=== PATIENT | male | born 1960 | race Caucasian/White ===

== ENCOUNTER 2018-11-06 00:01 | Inpatient (IN) ==
--- NOTE | 2018-11-06 01:01 | Emergency Department Note ---
Disposition Clinical Impression: Hyperbilirubinemia, Alkaline phosphatase elevation, Transaminitis Abdominal pain Qualifiers: Abdominal location: right upper quadrant Qualified Code(s): R10.11 - Right upper quadrant pain Hepatitis A Qualifiers: Hepatic coma status: without hepatic coma Qualified Code(s): B15.9 - Hepatitis A without hepatic coma Disposition: Admitted As Inpatient Condition: Fair Time of Disposition: 04:25 General Adult HPI - General Chief complaint: ED Recheck/Abnormal Lab/Rx Stated complaint: abnormal labs Time Seen by Provider: 11/06/18 00:16 Source: patient, family Limitations: no limitations Nursing Notes Reviewed: Yes Vital Signs Reviewed: Yes - History of Present Illness HPI Narrative: 58-year-old male diabetic arrives by private vehicle with complaint of elevated liver function tests from his primary care provider earlier today. Patient has known history of mental retardation is accompanied by his guardian who assisted with history. Patient guardian mentions that for the past week patient has not been feeling very well. They mention decreased appetite, and just a general feeling of "feeling bad". Patient did have one episode of vomiting earlier today. Patient was seen in his primary care providers today for routine diabetes visit. They describe having blood work, as well as an x-ray. After returning home, they had received a call from patient's PCP advising him to come the emergency department since his liver enzymes are elevated. Patient has been complaining of abdominal pain. Guardian states that he feels the patient's been complaining of right upper quadrant pain. Today he mentions that his urine turned the color of foreign soda. Patient denies any nausea, fever, stool color changes, diarrhea. Pain Scale: 8 - Related Data Home Medications Medication Instructions Recorded Confirmed Atorvastatin [Lipitor] 80 mg PO HS 11/24/14 11/06/18 Fluticasone Propionate Nasal 2 spray NS DAILY PRN 11/24/14 11/06/18 [Flonase] Loratadine [Claritin] 10 mg PO DAILY PRN 11/24/14 11/06/18 Metformin [Glucophage] 750 mg PO DAILY 11/24/14 11/06/18 Ranitidine HCl [Zantac] 150 mg PO BID 11/24/14 11/06/18 Omeprazole [PriLOSEC] 40 mg PO BID 04/06/15 11/06/18 Ciprofloxacin HCl [Cipro] 500 mg PO BID 11/06/18 11/06/18 Previous Rx's Medication Instructions Recorded Acetaminophen [Tylenol] 650 mg PO Q6HR PRN #30 tablet 03/02/18 Ibuprofen [Motrin] 600 mg PO Q8HR PRN #20 tab 03/02/18 Allergies Allergy/AdvReac Type Severity Reaction Status Date / Time egg Allergy Mild See Verified 11/06/18 00:25 Comments sulfamethoxazole Allergy See Verified 11/06/18 00:25 [From Bactrim] Comments trimethoprim [From Bactrim] Allergy See Verified 11/06/18 00:25 Comments All systems ED: reviewed and negative except as stated. Review of Systems: As Per HPI Constitutional: Denies: fever, chills Eyes: Denies: eye pain ENT ED: Denies: ear pain Cardiovascular: Denies: chest pain, palpitations Respiratory: Denies: dyspnea Gastrointestinal: Reports: as per HPI. Denies: diarrhea, constipation Genitourinary: Denies: dysuria Musculoskeletal: Denies: back pain Integumentary: Denies: rash Neurological: Denies: headache Hematological/Lymphatic: Denies: easy bleeding, lymphadenopathy Allergic/Immunologic: Denies: facial swelling Past Medical History - Past Medical History Medical history: Reports: diabetes, GERD, hyperlipidemia, hypertension, other Surgical history: Reports: herniorrhaphy, other Psychiatric history: Reports: no psych history - Social History Smoking Status: Never smoker Smokeless Tobacco Status: No Alcohol use: Reports: none Drug use: Reports: none Physical Exam - General Limitations: no limitations General appearance: alert, in no apparent distress - Head Head exam: atraumatic, normocephalic - Eye Eye exam: Present: EOMI, scleral icterus. Absent: conjunctival injection - ENT ENT exam: normal oropharynx, mucous membranes moist - Neck Neck exam: Present: full ROM - Chest Chest inspection: Present: symmetric chest wall rise - Respiratory Respiratory exam: Present: normal lung sounds bilaterally. Absent: respiratory distress - Cardiovascular Cardiovascular exam: Present: regular rate, normal rhythm - Abdominal Exam Abdominal exam: Present: soft, tenderness Abdominal tenderness: Present: RUQ - Extremities Exam Extremities exam: Present: normal inspection, full ROM, normal capillary refill - Back Exam Back exam: Present: full ROM. Absent: CVA tenderness (R), CVA tenderness (L) - Neurological Exam Neurological exam: Present: alert - Psychiatric Psychiatric exam: Present: normal affect, normal mood - Skin Skin exam: Present: warm, dry, intact, normal color. Absent: rash, cyanosis, diaphoresis Course Course Narrative: 58-year-old male diabetic arrives by private vehicle with complaint of elevated liver function tests from his primary care provider earlier today. Patient has known history of mental retardation is accompanied by his guardian who assisted with history. Patient guardian mentions that for the past week patient has not been feeling very well. They mention decreased appetite, and just a general feeling of "feeling bad". Patient did have one episode of vomiting earlier today. Patient was seen in his primary care providers today for routine diabete s visit. They describe having blood work, as well as an x-ray. After returning home, they had received a call from patient's PCP advising him to come the emergency department since his liver enzymes are elevated. Patient has been complaining of abdominal pain. Guardian states that he feels the patient's been complaining of right upper quadrant pain. Today he mentions that his urine turned the color of foreign soda. Patient denies any nausea, fever, stool color changes, diarrhea. Patient seen and examined. He is alert and answers questions appropriately. Does not appear to be toxic. He has scleral icterus normal oropharynx. Lung sounds are clear. Heart regular rate and rhythm. Diffuse abdominal tenderness. No CVA tenderness. he declines antiemetics and analgesics at this point. White blood count of 4.2 Total bili 4.8. AST 2233 ALT 3234 Alkaline phosphatase 206 Amylase and lipase within normal limits. 2 views of abdomen x-ray taken at family doctor unremarkable. Patient was placed on ciprofloxacin took one dose, given today PCPs office for possible urinary tract infection Past surgical history includes hiatal hernia repair Medications include Zantac, Prilosec, metformin, atorvastatin, ciprofloxacin, Flonase, - Reevaluation(s) Reevaluation #1: Patient states he feels comfortable enough, denies any medications now. He remains stable. Hepatitis profile pending. CAT scan is suggestive of acute cholecystitis. We will page surgery. Time: 03:25 Reevaluation #2: I had discussed patient with on-call surgeon Dr. Baron, who did advise for a medical admission and agreed to consult. Patient was discussed with hospitalist Dr. Vizcaino. At this time GI consult is not available since its after hours. Dr. Vizcaino is suggesting transfer for consult with auto mechanic apprentice/GI. Hepatitis profile pending. @04:25 after discussion with GI, I discussed patient with Dr. Vizcaino again who agreed to accept patient. I also discussed hepatitis profile with lab, who states that there quality consultant is being updated and they expect this to result in 30 minutes. Time: 04:00 - Consultations Consultation #1: I discussed patient with Dr. Baron, who advised admission to the hospitalist. He mentions patient's AST ALT levels are high, not consistent with choledocholithiasis, and he feels this is a acute primary hepatic problem. He did agree to consult. Time: 03:34 Consultation #2: On GI was paged, I discussed patient with Dr. Jack. He agreed with hepatitis panel, mentioning it seems consistent with hepatitis. He also felt patient could be admitted here and agreed to consult. Time: 04:19 Vital Signs Temperature 97.5 F L 11/06/18 00:03 Pulse Rate 86 11/06/18 00:03 Respiratory Rate 16 11/06/18 00:03 Blood Pressure 124/67 11/06/18 00:03 O2 Sat by Pulse Oximetry 98 11/06/18 00:03 Temperature 97.4 F L 11/06/18 05:15 Pulse Rate 84 11/06/18 05:15 Respiratory Rate 17 11/06/18 05:15 Blood Pressure 104/62 11/06/18 05:15 O2 Sat by Pulse Oximetry 94 11/06/18 05:15 Oxygen Delivery Oxygen Delivery Room Air Medical Decision Making - [facility] Narrative Medical decision making narrative: Patient presented with abdominal pain, decreased appetite, malaise for partially one week. He was seen at his PCPs office and had outpatient labwork shown transaminitis as well as elevated bilirubin, and alkaline phosphatase.. He is advised to come to the emergency department for further evaluation and treatment. He was accompanied by his legal guardian this patient has a history of mental retardation. He does appear to be quite alert and answers questions appropriately and is very pleasant on examination. In addition to the blood work ordered by his PCP earlier in the day, and ordered an INR, CK, and urinalysis. CAT scan with contrast had been ordered abdomen and pelvis showed concerning signs for acute cholecystitis. However on discussion with surgery, Dr. Baron felt that this was a primary hepatic issue and he did not feel this was consistent with a cholecystitis, or choledocholithiasis. Patient did need admission, and discussed with hospitalist who were initially concerned due to the high degree of the liver enzymes. Discussion with the hospice doctor., He was concerned about these numbers and had initially wanted to transfer. However I was able to discuss patient with gastroenteritis Dr. Jack who agreed to see patient in the morning and felt that the patient could stay and would not need to be transferred. I also discussed patient with attending Dr. Damon also face time patient and agreed with admission here. Patient has no previous history of liver disease, and denies any alcohol or excessive acetaminophen. He denies any dietary supplements, or heating of any exotic or wild foods. During his workup here, the hepatitis panel was ordered, but had not resulted. Patient was ultimately admitted to the hospitalist service. After which the hepatitis profile had resulted approximate 4 hours after was initially ordered. It was reactive for hepatitis A. During his stay in the emergency department, patient declined need for any analgesics. His vital stable. Abdomen/Pelvis CT 11/06/18 02:14 IMPRESSION: 1. Findings are suggestive of acute cholecystitis. Suggest clinical correlation, and consider further characterization with a follow-up gallbladder ultrasound. 2. Bilateral renal peripelvic cysts. 3. Stable sliding-type hiatal hernia. 4. Stable small fat containing bilateral inguinal hernias. D/ / Chetan Herrera MD / Chetan Herrera MD Interpreting Provider: Chetan Herrera MD Laboratory Tests 11/06/18 11/06/18 11/06/18 01:06 01:23 01:23 PT 14.5 H INR 1.3 APTT 40.8 H Creatine Kinase 54 Urine Color [place] A Urine Clarity Clear Urine pH 6.0 Ur Specific [place] 1.024 Urine Protein Trace Urine Glucose (UA) Normal Urine Ketones 15 H Urine Blood Negative Urine Nitrite Negative Urine Bilirubin Moderate H Urine Urobilinogen 4.0 H Ur Leukocyte Esterase Negative Ur Culture Indicated? NO Acetaminophen 11/06/18 01:23 PT INR APTT Creatine Kinase Urine Color Urine Clarity Urine pH Ur Specific [place] Urine Protein Urine Glucose (UA) Urine Ketones Urine Blood Urine Nitrite Urine Bilirubin Urine Urobilinogen Ur Leukocyte Esterase Ur Culture Indicated? Acetaminophen < 10 L - Lab Data Lab results reviewed: Yes I reviewed the patient's lab results. Result diagrams: 11/06/18 04:22 11/06/18 04:22 Lab Results 11/06/18 11/06/18 11/06/18 Range/Units 01:06 01:23 01:23 WBC (4.3-11.1) K/mcL RBC (4.19-5.50) M/mcL Hgb (12.9-16.9) g/dL Hct (37.5-50.1) % MCV (83.0-100.0) fL MCH (28.0-33.3) pg MCHC (31.6-35.5) g/dL RDW (11.5-14.5) % Plt Count (140-400) K/mcL MPV (9.4-12.4) fL Immature Gran % (0-4) % Seg Neutrophils % % Lymphocytes % % Monocytes % % Eosinophils % % Basophils % % Neutrophils # (1.6-8.9) K/mcL Lymphocytes # (0.6-4.6) K/mcL Monocytes # (0.0-1.3) K/mcL Eosinophils # (0.0-0.6) K/mcL Basophils # (0.0-0.2) K/mcL Platelet Estimate (Normal) PT 14.5 H (9.4-12.1) Seconds INR 1.3 APTT 40.8 H (26.0-36.0) Seconds Sodium (136-145) mEq/L Potassium (3.5-5.1) mEq/L Chloride (98-107) mEq/L Carbon Dioxide (23-29) mEq/L BUN (8-23) mg/dL Creatinine (0.70-1.30) mg/dL Est GFR ( Amer) (> 60) Est GFR (Non-Af Amer) (> 60) BUN/Creatinine Ratio (6-26) Glucose (70-105) mg/dL Calculated Osmolality (280-300) Calcium (8.6-10.3) mg/dL Total Bilirubin (0.3-1.0) mg/dL Direct Bilirubin (0.0-0.2) mg/dL Indirect Bilirubin (0.0-1.2) mg/dL AST (13-39) Units/L ALT (7-52) Units/L Alkaline Phosphatase (34-104) Units/L Creatine Kinase 54 (30-223) Units/L Serum Total Protein (6.4-8.9) g/dL Albumin (3.5-5.7) g/dL Globulin (2.4-3.5) g/dL Albumin/Globulin Ratio (1.1-2.2) Urine Color [place] A (Yellow) Urine Clarity Clear (Clear) Urine pH 6.0 (5.0-8.0) pH Units Ur Specific [place] 1.024 (1.010-1.025) Urine Protein Trace (Neg-Trace) mg/dL Urine Glucose (UA) Normal (Normal) mg/dL Urine Ketones 15 H (Negative) mg/dL Urine Blood Negative (Negative) Urine Nitrite Negative (Negative) Urine Bilirubin Moderate H (Negative) Urine Urobilinogen 4.0 H (Normal) mg/dL Ur Leukocyte Esterase Negative (Negative) Ur Culture Indicated? NO (NO) Acetaminophen (10-20) mcg/mL Hepatitis A IgM Ab (Nonreactive) Hep Bs Antigen (Nonreactive) Hep B Core IgM Ab (Nonreactive) Hepatitis C Ab Screen (Nonreactive) 11/06/18 11/06/18 11/06/18 Range/Units 01:23 01:23 04:22 WBC 3.6 L (4.3-11.1) K/mcL RBC 4.86 (4.19-5.50) M/mcL Hgb 13.9 (12.9-16.9) g/dL Hct 41.5 (37.5-50.1) % MCV 85.4 (83.0-100.0) fL MCH 28.6 (28.0-33.3) pg MCHC 33.5 (31.6-35.5) g/dL RDW 14.0 (11.5-14.5) % Plt Count 218 (140-400) K/mcL MPV 9.6 (9.4-12.4) fL Immature Gran % 0.6 (0-4) % Seg Neutrophils % 52.7 % Lymphocytes % 27.6 % Monocytes % 17.7 % Eosinophils % 0.8 % Basophils % 0.6 % Neutrophils # 1.9 (1.6-8.9) K/mcL Lymphocytes # 1.0 (0.6-4.6) K/mcL Monocytes # 0.6 (0.0-1.3) K/mcL Eosinophils # 0.0 (0.0-0.6) K/mcL Basophils # 0.0 (0.0-0.2) K/mcL Platelet Estimate Normal (Normal) PT (9.4-12.1) Seconds INR APTT (26.0-36.0) Seconds Sodium (136-145) mEq/L Potassium (3.5-5.1) mEq/L Chloride (98-107) mEq/L Carbon Dioxide (23-29) mEq/L BUN (8-23) mg/dL Creatinine (0.70-1.30) mg/dL Est GFR ( Amer) (> 60) Est GFR (Non-Af Amer) (> 60) BUN/Creatinine Ratio (6-26) Glucose (70-105) mg/dL Calculated Osmolality (280-300) Calcium (8.6-10.3) mg/dL Total Bilirubin (0.3-1.0) mg/dL Direct Bilirubin (0.0-0.2) mg/dL Indirect Bilirubin (0.0-1.2) mg/dL AST (13-39) Units/L ALT (7-52) Units/L Alkaline Phosphatase (34-104) Units/L Creatine Kinase (30-223) Units/L Serum Total Protein (6.4-8.9) g/dL Albumin (3.5-5.7) g/dL Globulin (2.4-3.5) g/dL Albumin/Globulin Ratio (1.1-2.2) Urine Color (Yellow) Urine Clarity (Clear) Urine pH (5.0-8.0) pH Units Ur Specific [place] (1.010-1.025) Urine Protein (Neg-Trace) mg/dL Urine Glucose (UA) (Normal) mg/dL Urine Ketones (Negative) mg/dL Urine Blood (Negative) Urine Nitrite (Negative) Urine Bilirubin (Negative) Urine Urobilinogen (Normal) mg/dL Ur Leukocyte Esterase (Negative) Ur Culture Indicated? (NO) Acetaminophen < 10 L (10-20) mcg/mL Hepatitis A IgM Ab Reactive H (Nonreactive) Hep Bs Antigen Nonreactive (Nonreactive) Hep B Core IgM Ab Nonreactive (Nonreactive) Hepatitis C Ab Screen Nonreactive (Nonreactive) 11/06/18 11/06/18 Range/Units 04:22 04:22 WBC (4.3-11.1) K/mcL RBC (4.19-5.50) M/mcL Hgb (12.9-16.9) g/dL Hct (37.5-50.1) % MCV (83.0-100.0) fL MCH (28.0-33.3) pg MCHC (31.6-35.5) g/dL RDW (11.5-14.5) % Plt Count (140-400) K/mcL MPV (9.4-12.4) fL Immature Gran % (0-4) % Seg Neutrophils % % Lymphocytes % % Monocytes % % Eosinophils % % Basophils % % Neutrophils # (1.6-8.9) K/mcL Lymphocytes # (0.6-4.6) K/mcL Monocytes # (0.0-1.3) K/mcL Eosinophils # (0.0-0.6) K/mcL Basophils # (0.0-0.2) K/mcL Platelet Estimate (Normal) PT (9.4-12.1) Seconds INR APTT (26.0-36.0) Seconds Sodium 136 (136-145) mEq/L Potassium 3.8 (3.5-5.1) mEq/L Chloride 103 (98-107) mEq/L Carbon Dioxide 26 (23-29) mEq/L BUN 12 (8-23) mg/dL Creatinine 0.70 (0.70-1.30) mg/dL Est GFR ( Amer) > 60 (> 60) Est GFR (Non-Af Amer) > 60 (> 60) BUN/Creatinine Ratio 17 (6-26) Glucose 116 H (70-105) mg/dL Calculated Osmolality 283 (280-300) Calcium 8.2 L (8.6-10.3) mg/dL Total Bilirubin 5.0 H (0.3-1.0) mg/dL Direct Bilirubin 3.5 H (0.0-0.2) mg/dL Indirect Bilirubin 1.5 H (0.0-1.2) mg/dL AST 2157 H (13-39) Units/L ALT 2981 H (7-52) Units/L Alkaline Phosphatase 190 H (34-104) Units/L Creatine Kinase (30-223) Units/L Serum Total Protein 6.4 (6.4-8.9) g/dL Albumin 3.4 L (3.5-5.7) g/dL Globulin 3.0 (2.4-3.5) g/dL Albumin/Globulin Ratio 1.1 (1.1-2.2) Urine Color (Yellow) Urine Clarity (Clear) Urine pH (5.0-8.0) pH Units Ur Specific [place] (1.010-1.025) Urine Protein (Neg-Trace) mg/dL Urine Glucose (UA) (Normal) mg/dL Urine Ketones (Negative) mg/dL Urine Blood (Negative) Urine Nitrite (Negative) Urine Bilirubin (Negative) Urine Urobilinogen (Normal) mg/dL Ur Leukocyte Esterase (Negative) Ur Culture Indicated? (NO) Acetaminophen (10-20) mcg/mL Hepatitis A IgM Ab (Nonreactive) Hep Bs Antigen (Nonreactive) Hep B Core IgM Ab (Nonreactive) Hepatitis C Ab Screen (Nonreactive) - Radiology Data Radiology results reviewed: Yes I reviewed the patient's radiology results.
[2018-11-06] MEDS ORDERED: Isovue-370 500 ML BOTTLE IVP ONE (01:05)
[2018-11-06 01:26] LABS: Bilirubin,Urine Moderate (Negative); Blood,Urine Negative (Negative); Clarity,Urine Clear (Clear); Color,Urine Orange (Yellow); Glucose,Urine (UA) Normal (Normal); Ketones,Urine 15 mg/dL (Negative); Leukocyte Esterase,Urine Negative (Negative); Nitrite,Urine Negative (Negative); Protein,Urine Trace mg/dL (Neg-Trace); Specific Gravity,Urine 1.024 (1.010-1.025)
[2018-11-06 01:51] LABS: INR 1.3; Prothrombin Time 14.5 Seconds (9.4-12.1)
[2018-11-06 01:54] LABS: Activated Partial Thrombo Time 40.8 Seconds (26.0-36.0)
[2018-11-06 02:21] LABS: Hepatitis B Surface Antigen Nonreactive (Nonreactive)
[2018-11-06 02:50] LABS: Hepatitis C Virus Antibody Nonreactive (Nonreactive)
[2018-11-06 02:51] LABS: Hepatitis B Core IgM Nonreactive (Nonreactive)
[2018-11-06] MEDS ORDERED: Ibuprofen 600 MG TABLET PO PRN (04:41)
[2018-11-06] MEDS ORDERED: Fluticasone Propionate Nasal 50 MCG/SPRAY BOTTLE NS PRN (04:41)
[2018-11-06 04:42] LABS: Hepatitis A Antibody IgM Reactive (Nonreactive)
[2018-11-06] MEDS ORDERED: Ondansetron 4 MG/2 ML VIAL IVP PRN (04:42)
[2018-11-06 04:44] LABS: Basophils % 0.6 %; Eosinophils % 0.8 %; Hematocrit 41.5 % (37.5-50.1); Hemoglobin 13.9 g/dL (12.9-16.9); Immature Granulocytes % 0.6 % (0-4); Lymphocytes % 27.6 %; Mean Corpuscular HGB Conc 33.5 g/dL (31.6-35.5); Mean Corpuscular Hemoglobin 28.6 pg (28.0-33.3); Mean Corpuscular Volume 85.4 fL (83.0-100.0); Mean Platelet Volume 9.6 fL (9.4-12.4); Monocytes # 0.6 K/mcL (0.0-1.3); Monocytes % 17.7 %; Neutrophils # 1.9 K/mcL (1.6-8.9); Platelet Count 218 K/mcL (140-400); Red Blood Count 4.86 M/mcL (4.19-5.50); Segmented Neutrophils % 52.7 %; White Blood Count 3.6 K/mcL (4.3-11.1)
[2018-11-06] MEDS ORDERED: Ringers Solution, Lactated 1,000 ML IVC SCH (04:45)
--- NOTE | 2018-11-06 04:52 | Emergency Department Note ---
Disposition Clinical Impression: Transaminitis, Hyperbilirubinemia, Alkaline phosphatase elevation Abdominal pain Qualifiers: Abdominal location: right upper quadrant Qualified Code(s): R10.11 - Right upper quadrant pain Hepatitis A Qualifiers: Hepatic coma status: without hepatic coma Qualified Code(s): B15.9 - Hepatitis A without hepatic coma Disposition: Admitted As Inpatient Condition: Fair Time of Disposition: 04:30 General Adult HPI - General Chief complaint: ED Recheck/Abnormal Lab/Rx Stated complaint: abnormal labs Time Seen by Provider: 11/06/18 00:16 Source: patient, family Limitations: no limitations Nursing Notes Reviewed: Yes Vital Signs Reviewed: Yes - History of Present Illness Pain Scale: 4 - Related Data Home Medications Medication Instructions Recorded Confirmed Atorvastatin [Lipitor] 80 mg PO HS 11/24/14 11/06/18 Fluticasone Propionate Nasal 2 spray NS DAILY PRN 11/24/14 11/06/18 [Flonase] Loratadine [Claritin] 10 mg PO DAILY PRN 11/24/14 11/06/18 Metformin [Glucophage] 750 mg PO DAILY 11/24/14 11/06/18 Ranitidine HCl [Zantac] 150 mg PO BID 11/24/14 11/06/18 Omeprazole [PriLOSEC] 40 mg PO BID 04/06/15 11/06/18 Ciprofloxacin HCl [Cipro] 500 mg PO BID 11/06/18 11/06/18 Previous Rx's Medication Instructions Recorded Acetaminophen [Tylenol] 650 mg PO Q6HR PRN #30 tablet 03/02/18 Ibuprofen [Motrin] 600 mg PO Q8HR PRN #20 tab 03/02/18 Allergies Allergy/AdvReac Type Severity Reaction Status Date / Time egg Allergy Mild See Verified 11/06/18 00:25 Comments sulfamethoxazole Allergy See Verified 11/06/18 00:25 [From Bactrim] Comments trimethoprim [From Bactrim] Allergy See Verified 11/06/18 00:25 Comments Constitutional: Denies: fever, chills Eyes: Denies: eye pain ENT ED: Denies: ear pain Cardiovascular: Denies: chest pain, palpitations Respiratory: Denies: dyspnea Gastrointestinal: Reports: as per HPI. Denies: diarrhea, constipation Genitourinary: Denies: dysuria Musculoskeletal: Denies: back pain Integumentary: Denies: rash Neurological: Denies: headache Hematological/Lymphatic: Denies: easy bleeding, lymphadenopathy Allergic/Immunologic: Denies: facial swelling Past Medical History - Past Medical History Medical history: Reports: diabetes, GERD, hyperlipidemia, hypertension, other Surgical history: Reports: herniorrhaphy, other Psychiatric history: Reports: no psych history - Social History Smoking Status: Never smoker Smokeless Tobacco Status: No Alcohol use: Reports: none Drug use: Reports: none Physical Exam - General Limitations: no limitations General appearance: alert, in no apparent distress Course Vital Signs Temperature 97.5 F L 11/06/18 00:03 Pulse Rate 86 11/06/18 00:03 Respiratory Rate 16 11/06/18 00:03 Blood Pressure 124/67 11/06/18 00:03 O2 Sat by Pulse Oximetry 98 11/06/18 00:03 Temperature 97.5 F L 11/06/18 00:03 Pulse Rate 85 11/06/18 04:04 Respiratory Rate 20 11/06/18 04:04 Blood Pressure 103/65 11/06/18 04:04 O2 Sat by Pulse Oximetry 97 11/06/18 04:04 Oxygen Delivery Oxygen Delivery Room Air Medical Decision Making - Medical Records Medical records reviewed: Yes I reviewed the patient's medical records. - Lab Data Lab results reviewed: Yes I reviewed the patient's lab results. Result diagrams: 11/06/18 04:22 Lab Results 11/06/18 11/06/18 11/06/18 Range/Units 01:06 01:23 01:23 WBC (4.3-11.1) K/mcL RBC (4.19-5.50) M/mcL Hgb (12.9-16.9) g/dL Hct (37.5-50.1) % MCV (83.0-100.0) fL MCH (28.0-33.3) pg MCHC (31.6-35.5) g/dL RDW (11.5-14.5) % Plt Count (140-400) K/mcL MPV (9.4-12.4) fL PT 14.5 H (9.4-12.1) Seconds INR 1.3 APTT 40.8 H (26.0-36.0) Seconds Creatine Kinase 54 (30-223) Units/L Urine Color [place] A (Yellow) Urine Clarity Clear (Clear) Urine pH 6.0 (5.0-8.0) pH Units Ur Specific [place] 1.024 (1.010-1.025) Urine Protein Trace (Neg-Trace) mg/dL Urine Glucose (UA) Normal (Normal) mg/dL Urine Ketones 15 H (Negative) mg/dL Urine Blood Negative (Negative) Urine Nitrite Negative (Negative) Urine Bilirubin Moderate H (Negative) Urine Urobilinogen 4.0 H (Normal) mg/dL Ur Leukocyte Esterase Negative (Negative) Ur Culture Indicated? NO (NO) Acetaminophen (10-20) mcg/mL Hepatitis A IgM Ab (Nonreactive) Hep Bs Antigen (Nonreactive) Hep B Core IgM Ab (Nonreactive) Hepatitis C Ab Screen (Nonreactive) 11/06/18 11/06/18 11/06/18 Range/Units 01:23 01:23 04:22 WBC 3.6 L (4.3-11.1) K/mcL RBC 4.86 (4.19-5.50) M/mcL Hgb 13.9 (12.9-16.9) g/dL Hct 41.5 (37.5-50.1) % MCV 85.4 (83.0-100.0) fL MCH 28.6 (28.0-33.3) pg MCHC 33.5 (31.6-35.5) g/dL RDW 14.0 (11.5-14.5) % Plt Count 218 (140-400) K/mcL MPV 9.6 (9.4-12.4) fL PT (9.4-12.1) Seconds INR APTT (26.0-36.0) Seconds Creatine Kinase (30-223) Units/L Urine Color (Yellow) Urine Clarity (Clear) Urine pH (5.0-8.0) pH Units Ur Specific [place] (1.010-1.025) Urine Protein (Neg-Trace) mg/dL Urine Glucose (UA) (Normal) mg/dL Urine Ketones (Negative) mg/dL Urine Blood (Negative) Urine Nitrite (Negative) Urine Bilirubin (Negative) Urine Urobilinogen (Normal) mg/dL Ur Leukocyte Esterase (Negative) Ur Culture Indicated? (NO) Acetaminophen < 10 L (10-20) mcg/mL Hepatitis A IgM Ab Reactive H (Nonreactive) Hep Bs Antigen Nonreactive (Nonreactive) Hep B Core IgM Ab Nonreactive (Nonreactive) Hepatitis C Ab Screen Nonreactive (Nonreactive) - Radiology Data Radiology results reviewed: Yes I reviewed the patient's radiology results. Abdomen/Pelvis CT 11/06/18 02:14 IMPRESSION: 1. Findings are suggestive of acute cholecystitis. Suggest clinical correlation, and consider further characterization with a follow-up gallbladder ultrasound. 2. Bilateral renal peripelvic cysts. 3. Stable sliding-type hiatal hernia. 4. Stable small fat containing bilateral inguinal hernias. D/ / Chetan Herrear MD / Chetan Herrera MD Interpreting Provider: Chetan Herrera MD Attestation Statement - Attestation Attestation: I, Ernesto Damon MD, personally evaluated this patient and discussed their management with the midlevel provicer, PAC[employer]. I reviewed the midlevel provider's note and agree with the documented findings, medical decision making, and plan of care. 58-year-old male presents to the emergency department because of abnormal lab testing. Patient states he has had nausea and vomiting and right upper quadrant abdominal pain for several days prior to arrival. He was seen earlier by his primary care provider and had lab work ordered. Lab work returned this evening showing significantly elevated liver enzymes. Patient was called and advised to come to the emergency department. He denies any fever. No diarrhea. He has noticed that his urine has been dark in color. On examination patient is a well-developed well-nourished well-appearing male in no acute distress. He is alert and oriented 3. There is no cyanosis or diaphoresis. Breath sounds are clear and equal bilaterally. Heart regular rate and rhythm. Abdomen is soft with normal bowel sounds. There is mild right upper quadrant tenderness on direct palpation with no guarding or rebound tenderness. Negative Rouse sign. Labs obtained earlier were reviewed. Labs tonight reviewed. Patient was posi tive for hepatitis A. CT of the abdomen and pelvis was obtained and was concerning for acute cholecystitis. The surgeon integration lead, Dr. Baron, was consulted and felt that this was more likely a primary hepatic issue and not due to cholecystitis or obstruction. GI, Dr. Jack, was consulted and agreed and felt the patient could be admitted here and he will consult on the patient in the hospital. The hospitalist, Dr. Vizcaino, was consulted and accepted admission of the patient.
[2018-11-06 04:55] LABS: BUN/Creatinine Ratio 17 (6-26); Blood Urea Nitrogen 12 mg/dL (8-23); Calcium 8.2 mg/dL (8.6-10.3); Carbon Dioxide 26 mEq/L (23-29); Chloride 103 mEq/L (98-107); Glucose 116 mg/dL (70-105); Osmolality,Calculated 283 (280-300); Potassium 3.8 mEq/L (3.5-5.1); Sodium 136 mEq/L (136-145); eGFR For African Americans > 60 (> 60); eGFR For Non-African Americans > 60 (> 60)
[2018-11-06] MEDS ORDERED: *HR* Dextrose 50 % in Water (Syg) 50 ML SYRINGE IVP PRN (05:06)
[2018-11-06] MEDS ORDERED: Dextrose Gel 15 GM/37.5 ML TUBE PO PRN ×2 (05:06)
[2018-11-06 05:14] LABS: Platelet Estimate Normal (Normal)
[2018-11-06 05:23] LABS: Albumin 3.4 g/dL (3.5-5.7); Albumin/Globulin Ratio 1.1 (1.1-2.2); Bilirubin,Direct 3.5 mg/dL (0.0-0.2); Bilirubin,Indirect 1.5 mg/dL (0.0-1.2); Total Protein 6.4 g/dL (6.4-8.9)
[2018-11-06] MEDS ORDERED: GI Cocktail 40 ML EACH PO ONE (05:25)
--- NOTE | 2018-11-06 05:32 | Internal Med History&Physical ---
Date of Encounter: 11/06/18 Time of Encounter: 05:31 Internal Medicine - H&P: HPI Chief complaint: malaise Admitted From: Home Plans for Post Hospital Care: Home History of present illness: Sharath Davila is a 58-year-old diabetic man with a mental disability who is brought to the emergency room for evaluation of abnormal lab tests that were ordered by his primary care provider yesterday. He presented in accompaniment of his guardian who provided much of the history. It is stated that for the past week he has been with generalized malaise, anorexia and generally feeling unwell. He complained of pain in his right upper quadrant since 3 days ago and had mild vomiting yesterday. No diarrhea, fever or chills are reported. His urine is darker than usual but he denies color change in his stool. On arrival he is hemodynamically stable. Lab work done revealed leukopenia 3.6 and his LFTs noted from his primary care visit are remarkable with an ALT of ~3200 and AST of ~2200 with a total bilirubin of 4.8. A CT of his abdomen was done which reported an impression of findings suggestive of acute cholecystitis. He was referred for admission. The patient lives by himself. Vitals: Reviewed General: Well-developed white male lying in bed in no acute distress. Skin: Warm, dry and flushed. Slightly jaundiced. HEENT: Moist mucous membranes. No conjunctivae pallor. Scleral icterus is present. Neck: No lymphadenopathy. No JVD. No carotid bruits. No palpable thyroid. Chest: Normal thoracic expansion. Normal breath sounds. Clear to auscultation. Heart: Normal S1 & S2; rhythmic. No rubs or murmurs. Abdomen: Non-distended, soft and minimally tender to palpation in the right upper quadrant. No peritoneal reaction. Extremities: No clubbing, cyanosis or edema. No calf tenderness. Normal distal pulses. Neurological: Awake, alert and oriented to person, place and time. No focal deficits. Psych: Affect appropriate. Assessment/Plan 1. Acute liver injury: I suspect the acute and severe derangement in his LFTs is secondary to a viral hepatitis inflammatory process and not an obstructive biliary disease. The hepatocellular pattern is significant and the preceding prodromal constitutional symptoms are suggestive of this. Hepatitis serology panel will be obtained for further evaluation. More than likely acute hepatitis A is at play. No evidence of acetaminophen toxicity or alcohol abuse. Pending that result, we will place him on fluid resuscitation and symptomatic relief therapies. Obtain a liver ultrasound for morphologic evaluation. The gallbladder wall thickening seen on CT I suspect has more to do with edematous changes in the liver and gallbladder area from the inflammatory process rather than lithiasis. Acetaminophen and atorvastatin will be on hold for now. 2. Diabetes: Seemingly adequate glycemic control with an A1C of 7.2%. He will be on insulin sliding scale during the current admission. 3. GERD: Continue PPI and H2 joni. 4. DVT prophylaxis: Antiembolic stockings ordered. Past Med Surg Social Fam HX - Past Medical History Medical history: diabetes, GERD, hyperlipidemia, hypertension, other Additional medical history: metabolic syndrome. abdominal ventral hernia s/p repair. allergic rhinitis. hx of back pain. menta retardation. anal skin masses Psychiatric history: no psych history - Past Surgical History Surgical History: herniorrhaphy, other Additional surgical history: EGD - Social History Smoking Status: Never smoker Smokeless Tobacco Status: No Alcohol use: none Drug use: none Internal Medicine - H&P: Meds Atorvastatin [Lipitor] 80 mg PO HS 11/24/14 [History] Fluticasone Propionate Nasal [Flonase] 2 spray NS DAILY PRN 11/24/14 [History] Loratadine [Claritin] 10 mg PO DAILY PRN 11/24/14 [History] Metformin [Glucophage] 750 mg PO DAILY 11/24/14 [History] Ranitidine HCl [Zantac] 150 mg PO BID 11/24/14 [History] Omeprazole [PriLOSEC] 40 mg PO BID 04/06/15 [History] Acetaminophen [Tylenol] 650 mg PO Q6HR PRN #30 tablet 03/02/18 [Rx] Ibuprofen [Motrin] 600 mg PO Q8HR PRN #20 tab 03/02/18 [Rx] Ciprofloxacin HCl [Cipro] 500 mg PO BID 11/06/18 [History] Allergy/AdvReac Type Severity Reaction Status Date / Time egg Allergy Mild See Verified 11/06/18 00:25 Comments sulfamethoxazole Allergy See Verified 11/06/18 00:25 [From Bactrim] Comments trimethoprim [From Bactrim] Allergy See Verified 11/06/18 00:25 Comments All Systems PM: A 10-system review of systems was performed and is negative for pertinent findings except as documented above in the HPI.Family history reviewed and found non-contributory. - Constitutional Vitals: Temp Pulse Resp BP Pulse Ox 97.4 F L 84 17 104/62 94 11/06/18 05:15 11/06/18 05:15 11/06/18 05:15 11/06/18 05:15 11/06/18 05:15 Exam: . Internal Med - H&P Results - Labs CBC & Chem 7: 11/06/18 04:22 11/06/18 04:22 Labs: Short CBC 11/06/18 Range/Units 04:22 WBC 3.6 L (4.3-11.1) K/mcL Hgb 13.9 (12.9-16.9) g/dL Hct 41.5 (37.5-50.1) % Plt Count 218 (140-400) K/mcL Neutrophils # 1.9 (1.6-8.9) K/mcL BMP 11/06/18 04:22 Sodium 136 Potassium 3.8 Chloride 103 Carbon Dioxide 26 BUN 12 Creatinine 0.70 Glucose 116 H Calcium 8.2 L Liver Function 11/06/18 Range/Units 04:22 Total Bilirubin 5.0 H (0.3-1.0) mg/dL Direct Bilirubin 3.5 H (0.0-0.2) mg/dL AST 2157 H (13-39) Units/L ALT 2981 H (7-52) Units/L Alkaline Phosphatase 190 H (34-104) Units/L Albumin 3.4 L (3.5-5.7) g/dL Urine 11/06/18 Range/Units 01:06 Urine Color [place] A (Yellow) Urine Clarity Clear (Clear) Urine pH 6.0 (5.0-8.0) pH Units Ur Specific [place] 1.024 (1.010-1.025) Urine Protein Trace (Neg-Trace) mg/dL Urine Glucose (UA) Normal (Normal) mg/dL - Impressions ITS Impressions Abdomen/Pelvis CT 11/06/18 02:14 IMPRESSION: 1. Findings are suggestive of acute cholecystitis. Suggest clinical correlation, and consider further characterization with a follow-up gallbladder ultrasound. 2. Bilateral renal peripelvic cysts. 3. Stable sliding-type hiatal hernia. 4. Stable small fat containing bilateral inguinal hernias. D/ / Chetan Herrera MD / Chetan Herrera MD Interpreting Provider: Chetan Herrera MD - Time Spent With Patient Total time spent is greater than 50% in coordination of care (as documented) at patient's floor/unit and/or counseling patient:
[2018-11-06] MEDS: Insulin LISPRO 300 UNITS/3 ML VIAL SQ SCH ×4 (07:43→20:48)
--- NOTE | 2018-11-06 08:24 | Event Note ---
Date of Encounter: 11/06/18 Time of Encounter: 09:00 I have seen and independently assessed this patient and I agree with plan per night team Plan Acute hepatic failure with acute hepatitis A infection. IV fluids with normal saline and supportive management. Advance diet as tolerated Acute cholecystitis. Pt has contracted gall bladder with wall thickening. Does not have a clinically impressive abdominal exam. Surgery on board and appreciate recs
[2018-11-06] MEDS ORDERED: Loratadine 10 MG TABLET PO PRN (09:00)
--- NOTE | 2018-11-06 09:26 | Gastroenterology Consult Note ---
<Donna Schneider - Last Filed: 11/06/18 10:56> Date of Encounter: 11/06/18 Time of Encounter: 10:20 - Assessment and plan (1) Hepatitis A Current Visit: Yes Status: Acute Assessment and plan: Hepatitis serology confirmed Hepatitis A IgM antibody. HPI and workup are suggestive of this. - Supportive care - Continue monitoring LFTs - Discussed with patient infectivity status, complications, and proper hygiene practices. - Encouraged close contact for HAV screening. - Patient can be taken off NPO and begin eating as desire. Qualifiers: Hepatic coma status: without hepatic coma Qualified Code(s): B15.9 - Hepatitis A without hepatic coma (2) GERD (gastroesophageal reflux disease) Current Visit: Yes Status: Chronic Assessment and plan: Pt and guardian reported chronic history of GERD. Pt describes some burning in his stomach this past week. - continue omeprazole therapy 40mg PO Daily. - can be taken off NPO and eat as convenient. Qualifiers: Esophagitis presence: esophagitis presence not specified Qualified Code(s): K21.9 - Gastro-esophageal reflux disease without esophagitis - Time Spent With Patient Total time spent is greater than 50% in coordination of care (as documented) at patient's floor/unit and/or counseling patient: 25 - 35 minutes GI History of Present Illness - Data of Consult Patient: known to practice within the last 3 years Requesting Physician: Sheila Vizcaino MD - Consult Narrative Reason for consult: RUQ pain, transaminitis History of present illness: Mr. Davila is a 58 year old male with mental disability, diabetes, and GERD who was brought to the ED for evaluation of abnormal lab results that were ordered by his primary care provider. He is accompanied by his guardian who aided with his history. The patient complained of RUQ pain, malaise, and "feeling bad" since Friday, which the guardian learned about Friday. The RUQ pain was described as "sharp" and constant to which he just laid in bed (pain scale unable to interpret due to incoherence). Throughout the week, he complained of nausea and a decrease appetite because he was "scared to eat because of pain in his belly" and "throat burning." He currently is hungry and has an appetite. He vomited once yesterday and complains of a dry throat. He denies hematemesis, diarrhea, melena, hematochezia, fever, or chills. He stated his urine has been "orange" and darker than usual but has no change in freq uency. Pt lives alone but guardian reports strangers and others move freely in and out of resident's facilities. Guardian stated patient's food has been stolen or shared in the past and he interacts regularly with the visitors. He denies any recent traveling in the past 6 months or consumption of shellfish. Past Med Surg Social Fam HX - Past Medical History Medical history: diabetes, GERD, hyperlipidemia, other Additional medical history: metabolic syndrome. abdominal ventral hernia s/p repair x3. allergic rhinitis. hx of back pain. MRDD. anal skin masses Psychiatric history: no psych history - Past Surgical History Surgical History: herniorrhaphy, other Additional surgical history: EGD - Social History Smoking Status: Never smoker Smokeless Tobacco Status: No Alcohol use: none Drug use: none ROS unobtainable: other (Patient has mental disability and has guardian aiding in answering questions) - Gastrointestinal Gastrointestinal: Present: as per HPI, abdominal pain, bloating, change in bowel habits, constipation, heartburn, nausea, vomiting, other (Also complains of dry throat.). Absent: coffee ground emesis, diarrhea, hematemesis, hematochezia, melena Additional Comments: Patient vomited once yesterday. In the past week, he has complained of constipation and hard stool, but also not being able to eat or drink because he was "afraid to eat" due to belly pain. - Constitutional Constitutional: fatigue (feels "tired and lower energy"), no anorexia ( "afraid to eat" due to belly pain, however stated he is hungry.), no fever(s), no weight gain, no weight loss - EENT Eyes: Yellow Discoloration (Others have told him his eyes looked yellow) - Cardiovascular Cardiovascular ROS: Absent: chest pain, irregular heart rhythm - Respiratory Respiratory IM: Absent: cough, dyspnea - Genitourinary Genitourinary: Present: change in color (pee has turned "orange"). Absent: Urinary frequency - Hematologic/Lymphatic Hematologic/Lymphatic pediatric: Absent: easy bleeding - Musculoskeletal Additional Comment: Denies edema - Integumentary Integumentary GI: Absent: jaundice, pruritis, rash - Constitutional Vitals: Temp Pulse Resp BP Pulse Ox 97.4 F L 84 17 104/62 94 11/06/18 05:15 11/06/18 05:15 11/06/18 05:15 11/06/18 05:15 11/06/18 05:52 General appearance: Present: cooperative, A&O X 3, pleasant, no acute distress, answers questions appropriately Exam: Has known mental disability, but was able to answer basic questions appropriately. - Head Head exam: Present: atraumatic, normal inspection - Eye Eye exam: Present: EOMI, scleral icterus (mild) - ENT ENT exam: Present: mucous membranes moist - Respiratory Respiratory exam: Present: CTAB. Absent: rales, respiratory distress, rhonchi, stridor, wheezes, tachypnea - Cardiovascular Cardiovascular exam: Present: RRR, +S1, +S2. Absent: tachycardia - GI/Abdominal GI/Abdominal exam: Present: normal bowel sounds, soft, tenderness (RUQ mild tenderness on deep palpation. No tenderness in remaining quadrants.), no peritoneal signs. Absent: firm, guarding, rebound, rigid - Extremities Exam Extremities exam: Present: warm. Absent: pedal edema, tenderness - Psychiatric Psychiatric exam: Present: anxious (Mildly anxious and concern about cause of Hepatitis A infection.), normal mood. Absent: agitated, depressed, flat affect - Skin Skin exam: Present: dry, normal color, warm Results - Labs CBC & Chem 7: 11/06/18 04:22 11/06/18 04:22 Labs: Last Result 11/06/18 04:22 Calcium 8.2 L Entire Visit 11/06/18 11/06/18 11/06/18 01:23 01:23 04:22 Hgb 13.9 Hct 41.5 PT 14.5 H Total Bilirubin AST ALT Acetaminophen < 10 L 11/06/18 04:22 Hgb Hct PT Total Bilirubin 5.0 H AST 2157 H ALT 2981 H Acetaminophen - ABG ABG results: PT/INR, D-dimer PT 14.5 Seconds (9.4-12.1) H 11/06/18 01:23 - Impressions Impressions Abdomen/Pelvis CT 11/06/18 02:14 IMPRESSION: 1. Findings are suggestive of acute cholecystitis. Suggest clinical correlation, and consider further characterization with a follow-up gallbladder ultrasound. 2. Bilateral renal peripelvic cysts. 3. Stable sliding-type hiatal hernia. 4. Stable small fat containing bilateral inguinal hernias. D/ / 11/06/2018 08:17:32 Chetan Herrera MD / pro Interpreting Provider: Chetan Herrera MD Consult Discharge Plan - Plan Referrals: Valerie Orellana MD [Primary Care Provider] - <Girish Jack - Last Filed: 11/06/18 14:11> Date of Encounter: 11/06/18 Time of Encounter: 13:00 - Time Spent With Patient Total time spent is greater than 50% in coordination of care (as documented) at patient's floor/unit and/or counseling patient: GI History of Present Illness - Data of Consult Requesting Physician: Sheila Vizcaino MD - Consult Narrative History of present illness: Mr. Davila is a 58 year old male - Constitutional Vitals: Temp Pulse Resp BP Pulse Ox 97.9 F 81 16 119/73 94 11/06/18 10:26 11/06/18 10:26 11/06/18 10:26 11/06/18 10:26 11/06/18 10:26 Results - Labs CBC & Chem 7: 11/06/18 04:22 11/06/18 04:22 Labs: Last Result 11/06/18 04:22 Calcium 8.2 L Entire Visit 11/06/18 11/06/18 04:22 04:22 Hgb 13.9 Hct 41.5 Total Bilirubin 5.0 H AST 2157 H ALT 2981 H - ABG ABG results: PT/INR, D-dimer PT 14.5 Seconds (9.4-12.1) H 11/06/18 01:23 - Impressions Impressions Abdomen/Pelvis CT 11/06/18 02:14 IMPRESSION: 1. Findings are suggestive of acute cholecystitis. Suggest clinical correlation, and recommend further characterization with a follow-up gallbladder ultrasound. 2. Bilateral renal peripelvic cysts. 3. Stable sliding-type hiatal hernia. 4. Stable small fat containing bilateral inguinal hernias. D/ / 11/06/2018 08:17:32 Chetan Herrera MD / pro Interpreting Provider: Chetan Herrera MD Liver Ultrasound 11/06/18 09:49 IMPRESSION: Gallbladder is contracted but demonstrates wall thickening measuring up to 1 cm and there is a positive sonographic Rouse's sign. Findings are equivocal for acute cholecystitis. Consider HIDA scan for further evaluation. D/ / Jed Garcia MD / Jed Garcia MD Interpreting Provider: Jed Garcia MD - Attending Attestation I examined this patient and my medical decision-making was reviewed with the Medical student. I agree with the documented findings, disposition and treatment plan as described except to the extent set forth below. Patient seen. Denies abdominal pain on examination: Mild jaundice. Assessment: Patient with acute hepatitis C with elevated LFTs. Recommendation: Supportive care. Need vaccination for hep B as an outpatient immediate family members/close contacts need to be vaccinated for hep A
--- NOTE | 2018-11-06 10:13 | AcuteCare Surgery Consult Note ---
Date of Encounter: 11/06/18 Time of Encounter: 08:00 Assessment and Plan (1) Acute cholecystitis Current Visit: Yes Status: Acute NPO. IV abx. May be reactive due to hepatitis. Treat hepatitis expectantly. No surgery indicated at this time. (2) Hepatitis A Current Visit: Yes Status: Acute Qualifiers: Hepatic coma status: without hepatic coma Qualified Code(s): B15.9 - Hepatitis A without hepatic coma History of Present Illness Consult date: 11/06/18 Reason for consult: abdominal pain Requesting physician: Homero Parekh History of present illness: This 58 y/o pt presents to [facility] ED complaining of RUQ abdominal pain. Pt reports pain is severe and unrelenting. Pt reports the pain is progressively worsening. Pt reports pain radiates to back and up to right shoulder. Pt reports associated nausea and vomiting. Pt denies CP or SOB. Denies fever. Past Med Surg Social Fam HX - Past Medical History Medical history: diabetes, GERD, hyperlipidemia, other Additional medical history: metabolic syndrome. abdominal ventral hernia s/p repair x3. allergic rhinitis. hx of back pain. MRDD. anal skin masses Psychiatric history: no psych history - Past Surgical History Surgical History: herniorrhaphy, other Additional surgical history: EGD - Social History Smoking Status: Never smoker Smokeless Tobacco Status: No Alcohol use: none Drug use: none Medications and Allergies Atorvastatin [Lipitor] 80 mg PO HS 11/24/14 [History] Fluticasone Propionate Nasal [Flonase] 2 spray NS DAILY PRN 11/24/14 [History] Loratadine [Claritin] 10 mg PO DAILY PRN 11/24/14 [History] Metformin [Glucophage] 750 mg PO DAILY 11/24/14 [History] Ranitidine HCl [Zantac] 150 mg PO BID 11/24/14 [History] Omeprazole [PriLOSEC] 40 mg PO BID 04/06/15 [History] Acetaminophen [Tylenol] 650 mg PO Q6HR PRN #30 tablet 03/02/18 [Rx] Ibuprofen [Motrin] 600 mg PO Q8HR PRN #20 tab 03/02/18 [Rx] Ciprofloxacin HCl [Cipro] 500 mg PO BID 11/06/18 [History] Allergy/AdvReac Type Severity Reaction Status Date / Time egg Allergy Mild See Verified 11/06/18 00:25 Comments sulfamethoxazole Allergy See Verified 11/06/18 00:25 [From Bactrim] Comments trimethoprim [From Bactrim] Allergy See Verified 11/06/18 00:25 Comments Review of Systems All systems PM: The remainder of the systems were reviewed and are negative - Constitutional anorexia, fatigue, weakness, no chills, no fever(s), no night sweats - EENT Nose, mouth and throat: dry mouth, no dizziness, no dysphagia, no nasal congestion, no nasal discharge, no sinus pain, no sinus pressure, no sore throat - Cardiovascular no chest pain, no diaphoresis, no dyspnea, no edema - Respiratory no cough, no dyspnea, no wheezing - Gastrointestinal abdominal pain, belching, bloating, nausea, vomiting, no constipation, no diarrhea - Genitourinary no dysuria, no hematuria, no urinary frequency - Musculoskeletal no back pain, no joint swelling, no limited range of motion, no neck pain - Integumentary jaundice, no dry skin, no pruritus, no rash, no wounds - Neurological no confusion, no dizziness, no focal weakness, no weakness - Psychiatric no anxiety, no depression - Endocrine no fatigue - Hematologic/Lymphatic no easy bleeding, no easy bruising General Surgery Exam Initial Vital Signs Temp Pulse Resp BP Pulse Ox 97.5 F L 86 16 124/67 98 11/06/18 00:03 11/06/18 00:03 11/06/18 00:03 11/06/18 00:03 11/06/18 00:03 - General physical appearance no distress, moderate pain, jaundice - Eyes PERRL, normal ocular movement. negative: icteric - ENT normal mucosa, no congestion, dry mucosa. negative: nasal discharge - Neck no masses, trachea midline, no lymphadectomy, no venous distension - Respiratory normal respiratory effort, clear to auscultation - Cardiovascular Cardiovascular exam: Present: RRR. Absent: JVD - Abdomen Abdomen general surgery: Present: bowel sounds present, tender Abdominal Tenderness: Present: RUQ - Genitourinary Present: normal penis with no external lesions - Integumentary Integumentary general surgery: Present: warm and dry - Neurologic Present: CN 2-12 grossly intact, normal coordination - Musculoskeletal Present: normal posture - Psychiatric Psychiatric general surgery: Present: A&Ox3, appropriate Exam Initial Vital Signs Temp Pulse Resp BP Pulse Ox 97.5 F L 86 16 124/67 98 11/06/18 00:03 11/06/18 00:03 11/06/18 00:03 11/06/18 00:03 11/06/18 00:03 Results - Labs 11/06/18 04:22 11/06/18 04:22 Abnormal lab results WBC 3.6 K/mcL (4.3-11.1) L 11/06/18 04:22 PT 14.5 Seconds (9.4-12.1) H 11/06/18 01:23 APTT 40.8 Seconds (26.0-36.0) H 11/06/18 01:23 Glucose 116 mg/dL (70-105) H 11/06/18 04:22 POC Glucose 110 mg/dL (70-99) H 11/06/18 05:36 Calcium 8.2 mg/dL (8.6-10.3) L 11/06/18 04:22 Total Bilirubin 5.0 mg/dL (0.3-1.0) H 11/06/18 04:22 Direct Bilirubin 3.5 mg/dL (0.0-0.2) H 11/06/18 04:22 Indirect Bilirubin 1.5 mg/dL (0.0-1.2) H 11/06/18 04:22 AST 2157 Units/L (13-39) H 11/06/18 04:22 ALT 2981 Units/L (7-52) H 11/06/18 04:22 Alkaline Phosphatase 190 Units/L (34-104) H 11/06/18 04:22 Albumin 3.4 g/dL (3.5-5.7) L 11/06/18 04:22 Urine Color [place] (Yellow) A 11/06/18 01:06 Urine Ketones 15 mg/dL (Negative) H 11/06/18 01:06 Urine Bilirubin Moderate (Negative) H 11/06/18 01:06 Urine Urobilinogen 4.0 mg/dL (Normal) H 11/06/18 01:06 Acetaminophen < 10 mcg/mL (10-20) L 11/06/18 01:23 Hepatitis A IgM Ab Reactive (Nonreactive) H 11/06/18 01:23 Diabetes panel 11/06/18 11/06/18 Range/Units 04:22 04:22 Sodium 136 (136-145) mEq/L Potassium 3.8 (3.5-5.1) mEq/L Chloride 103 (98-107) mEq/L Carbon Dioxide 26 (23-29) mEq/L BUN 12 (8-23) mg/dL Creatinine 0.70 (0.70-1.30) mg/dL Glucose 116 H (70-105) mg/dL Calcium 8.2 L (8.6-10.3) mg/dL AST 2157 H (13-39) Units/L ALT 2981 H (7-52) Units/L Alkaline Phosphatase 190 H (34-104) Units/L Albumin 3.4 L (3.5-5.7) g/dL Calcium panel 11/06/18 11/06/18 Range/Units 04:22 04:22 Calcium 8.2 L (8.6-10.3) mg/dL Albumin 3.4 L (3.5-5.7) g/dL Pituitary panel 11/06/18 Range/Units 04:22 Sodium 136 (136-145) mEq/L Potassium 3.8 (3.5-5.1) mEq/L Chloride 103 (98-107) mEq/L Carbon Dioxide 26 (23-29) mEq/L BUN 12 (8-23) mg/dL Creatinine 0.70 (0.70-1.30) mg/dL Glucose 116 H (70-105) mg/dL Calcium 8.2 L (8.6-10.3) mg/dL Adrenal panel 11/06/18 11/06/18 Range/Units 04:22 04:22 Sodium 136 (136-145) mEq/L Potassium 3.8 (3.5-5.1) mEq/L Chloride 103 (98-107) mEq/L Carbon Dioxide 26 (23-29) mEq/L BUN 12 (8-23) mg/dL Creatinine 0.70 (0.70-1.30) mg/dL Glucose 116 H (70-105) mg/dL Calcium 8.2 L (8.6-10.3) mg/dL Total Bilirubin 5.0 H (0.3-1.0) mg/dL AST 2157 H (13-39) Units/L ALT 2981 H (7-52) Units/L Alkaline Phosphatase 190 H (34-104) Units/L Albumin 3.4 L (3.5-5.7) g/dL All other labs normal. - Imaging CT scan - abdomen: image reviewed (+pericholecystic fluid and thickened GB wall) CT scan - pelvis: image reviewed US - abdomen: image reviewed (contracted GB with thickened wall) Consult Discharge Plan - Plan Referrals: Valerie Orellana MD [Primary Care Provider] -
[2018-11-06] MEDS: Famotidine 20 MG TABLET PO SCH ×2 (10:21→20:44)
[2018-11-06] MEDS: 0.9 % Sodium Chloride 1,000 ML IVC SCH ×2 (10:21→16:54)
[2018-11-06] MEDS: Ampicillin/Sulbactam 3,000 MG in 0.9 % Sodium Chloride Mini Bag 100 ML IVPB SCH (18:44)
[2018-11-07] MEDS: Ampicillin/Sulbactam 3,000 MG in 0.9 % Sodium Chloride Mini Bag 100 ML IVPB SCH ×4 (00:23→18:04)
[2018-11-07] MEDS: 0.9 % Sodium Chloride 1,000 ML IVC SCH ×4 (00:24→22:00)
--- NOTE | 2018-11-07 08:15 | Internal Med Progress Note ---
Hospitalist Progress Note - Encounter Date of Encounter: 11/07/18 Time of Encounter: 09:00 - Subjective Interval History: No acute events overnight - Exam Vitals: Temp Pulse Resp BP Pulse Ox 97.9 F 68 16 130/71 97 11/07/18 07:55 11/07/18 07:55 11/07/18 07:55 11/07/18 07:55 11/07/18 07:55 Exam: General appearance: Present: A&O X 3, no acute distress Head exam: Present: normocephalic Respiratory exam: Present: CTAB. Absent: accessory muscle use, rales, rhonchi, wheezes Cardiovascular exam: Present: RRR, +S1, +S2. Absent: diastolic murmur, gallop, rubs, systolic murmur GI/Abdominal exam: Soft, NT, ND, +BS Extremities exam: Absent: pedal edema Neurological exam: Present: alert, oriented X3, no focal deficits. Absent: altered - Assessment and Plan (1) Acute hepatic failure Current Visit: Yes Status: Acute Assessment and Plan: Pt comes in with malaise, nausea and weakness 2/2 to acute hepatitis A infection Continue IV fluids and supportive care. Monitor daily LFTs Clinically stable (2) Hepatitis A Current Visit: Yes Status: Acute Assessment and Plan: See #!. COntinue IV fluids. Supportive care (3) Acute cholecystitis Current Visit: Yes Status: Acute Assessment and Plan: Pt had what appeared to be cholecystitis on CT abdomen. Clinically abdominal exam unimpressive Seen by surgery , no acute intervention planned. CT findings may be related to liver inflammation from liver failure Continue empiric antibiotics per surgery (4) Diabetes mellitus Current Visit: Yes Status: Acute Assessment and Plan: Continue insulin and monitor fingersticks (5) DVT prophylaxis Current Visit: Yes Status: Acute Assessment and Plan: Heparin sc - Time Spent with Patient Total time spent is greater than 50% in coordination of care (as documented) at patient's floor/unit and/or counseling patient: Internal Medicine: Result - Labs CBC & Chem 7: 11/07/18 10:05 11/07/18 10:05 - ABG Interpretation ABG results: PT/INR, D-dimer PT 14.5 Seconds (9.4-12.1) H 11/06/18 01:23 - Impressions Impressions Abdomen/Pelvis CT 11/06/18 02:14 IMPRESSION: 1. Findings are suggestive of acute cholecystitis. Suggest clinical correlation, and recommend further characterization with a follow-up gallbladder ultrasound. 2. Bilateral renal peripelvic cysts. 3. Stable sliding-type hiatal hernia. 4. Stable small fat containing bilateral inguinal hernias. D/ / 11/06/2018 08:17:32 Chetan Herrera MD / pro Interpreting Provider: Chetan Herrera MD Liver Ultrasound 11/06/18 09:49 IMPRESSION: Gallbladder is contracted but demonstrates wall thickening measuring up to 1 cm and there is a positive sonographic Rouse's sign. Findings are equivocal for acute cholecystitis. Consider HIDA scan for further evaluation. D/ / Jed Garcia MD / Jed Garcia MD Interpreting Provider: Jed Garcia MD - VTE Documentation of Mechanical Device: Graduated compression elastic hosiery Consult Discharge Plan - Plan Referrals: Valerie Orellana MD [Primary Care Provider] - (1) Acute hepatic failure Qualifiers: Qualified Code(s): K72.00 - Acute and subacute hepatic failure without coma (2) Hepatitis A Qualifiers: Hepatic coma status: without hepatic coma Qualified Code(s): B15.9 - Hepatitis A without hepatic coma
[2018-11-07] MEDS: Insulin LISPRO 300 UNITS/3 ML VIAL SQ SCH ×4 (10:08→20:42)
[2018-11-07] MEDS: Famotidine 20 MG TABLET PO SCH ×2 (10:08→20:44)
[2018-11-07 10:53] LABS: Basophils % 0.5 %; Eosinophils % 0.3 %; Hematocrit 44.8 % (37.5-50.1); Hemoglobin 14.6 g/dL (12.9-16.9); Immature Granulocytes % 0.3 % (0-4); Lymphocytes % 24.6 %; Mean Corpuscular HGB Conc 32.6 g/dL (31.6-35.5); Mean Corpuscular Hemoglobin 28.3 pg (28.0-33.3); Mean Corpuscular Volume 86.8 fL (83.0-100.0); Monocytes # 0.5 K/mcL (0.0-1.3); Monocytes % 13.6 %; Neutrophils # 2.4 K/mcL (1.6-8.9); Platelet Count 245 K/mcL (140-400); Red Blood Count 5.16 M/mcL (4.19-5.50); Red Cell Distribution Width 14.1 % (11.5-14.5); Segmented Neutrophils % 60.7 %; White Blood Count 3.9 K/mcL (4.3-11.1)
[2018-11-07 11:24] LABS: Alanine Aminotransferase 3152 Units/L (7-52); Albumin 3.5 g/dL (3.5-5.7); Albumin/Globulin Ratio 1.1 (1.1-2.2); Alkaline Phosphatase 211 Units/L (34-104); Aspartate Amino Transferase 2508 Units/L (13-39); BUN/Creatinine Ratio 9 (6-26); Bilirubin,Total 5.5 mg/dL (0.3-1.0); Blood Urea Nitrogen 6 mg/dL (8-23); Calcium 8.4 mg/dL (8.6-10.3); Carbon Dioxide 26 mEq/L (23-29); Chloride 103 mEq/L (98-107); Globulin 3.2 g/dL (2.4-3.5); Glucose 141 mg/dL (70-105); Magnesium 1.9 mg/dL (1.6-2.6); Osmolality,Calculated 280 (280-300); Potassium 3.9 mEq/L (3.5-5.1); Sodium 135 mEq/L (136-145); Total Protein 6.7 g/dL (6.4-8.9); eGFR For African Americans > 60 (> 60); eGFR For Non-African Americans > 60 (> 60)
--- NOTE | 2018-11-07 12:30 | AcuteCareSurgery Progress Note ---
Date of Encounter: 11/07/18 Time of Encounter: 12:00 - Assessment and Plan (1) Acute cholecystitis Current Visit: Yes Status: Acute Maintain IV abx. No surgery indicated in the setting of acalculus cholecystitis and acute hepatitis. Treat hepatitis per primary service. As no surgery is indicated at this time, surgery will sign off. Please, reconsult prn. Thank you for allowing us to participate in this patient's care. (2) Hepatitis A Current Visit: Yes Status: Acute Qualifiers: Hepatic coma status: without hepatic coma Qualified Code(s): B15.9 - Hepatitis A without hepatic coma Subjective Patient reports: no new complaints, feels better, still having pain, pain is less, tolerating liquids well, flatus, afebrile Objective Vital Signs - Last 8 Hours Temp Pulse Resp BP Pulse Ox 11/07/18 11:15 98.2 F 81 20 121/76 99 11/07/18 07:55 97.9 F 68 16 130/71 97 Intake and Output 11/06/18 11/07/18 11/07/18 23:59 07:59 15:59 Intake Total 2400 / 2400 1200 / 1440 240 / 1440 Output Total 450 / 1300 1600 / 1900 300 / 1900 Balance 1950 / 1100 -400 / -460 -60 / -460 Intake: IV Fluids 2100 / 2100 1200 / 1200 0.9 % Sodium Chloride 1,000 ML 2000 / 2000 1000 / 1000 @ 150 mls/hr IVC .[id number] [facility] Rx #:[id number] Unasyn 3,000 MG In 0.9 % Sodium 100 / 100 200 / 200 Chloride (Mini-Bag +) 100 ML @ 200 mls/hr IVPB Q6HR [facility] Rx#: [id number] Oral 300 / 300 0 / 240 240 / 240 Output: Urine 450 / 1300 1600 / 1900 300 / 1900 Other: Meal Breakfast Percent of Meal Consumed 100% Weight 80.1 kg Blood Glucose* 98 99 114 Patient Weight 11/07/18 23:59 Weight 80.1 kg - General physical appearance no distress, moderate pain, jaundice - Eyes PERRL, normal ocular movement, icteric - ENT normal mucosa, no congestion - Neck Neck exam: trachea midline, no venous distension - Respiratory normal respiratory effort, clear to auscultation - Cardiovascular Cardiovascular exam: Present: RRR. Absent: JVD - Abdomen Abdomen: Present: bowel sounds present, soft, tender Abdominal Tenderness: RUQ - Neurologic CN 2-12 grossly intact, normal coordination - Musculoskeletal normal posture - Psychiatric oriented to time, oriented to person, oriented to place - Labs 11/07/18 10:05 11/07/18 10:05 Diabetes panel 11/07/18 Range/Units 10:05 Sodium 135 L (136-145) mEq/L Potassium 3.9 (3.5-5.1) mEq/L Chloride 103 (98-107) mEq/L Carbon Dioxide 26 (23-29) mEq/L BUN 6 L (8-23) mg/dL Creatinine 0.70 (0.70-1.30) mg/dL Glucose 141 H (70-105) mg/dL Calcium 8.4 L (8.6-10.3) mg/dL AST 2508 H (13-39) Units/L ALT 3152 H (7-52) Units/L Alkaline Phosphatase 211 H (34-104) Units/L Albumin 3.5 (3.5-5.7) g/dL Calcium panel 11/07/18 Range/Units 10:05 Calcium 8.4 L (8.6-10.3) mg/dL Phosphorus 2.0 L (2.7-4.5) mg/dL Albumin 3.5 (3.5-5.7) g/dL Pituitary panel 11/07/18 Range/Units 10:05 Sodium 135 L (136-145) mEq/L Potassium 3.9 (3.5-5.1) mEq/L Chloride 103 (98-107) mEq/L Carbon Dioxide 26 (23-29) mEq/L BUN 6 L (8-23) mg/dL Creatinine 0.70 (0.70-1.30) mg/dL Glucose 141 H (70-105) mg/dL Calcium 8.4 L (8.6-10.3) mg/dL Adrenal panel 11/07/18 Range/Units 10:05 Sodium 135 L (136-145) mEq/L Potassium 3.9 (3.5-5.1) mEq/L Chloride 103 (98-107) mEq/L Carbon Dioxide 26 (23-29) mEq/L BUN 6 L (8-23) mg/dL Creatinine 0.70 (0.70-1.30) mg/dL Glucose 141 H (70-105) mg/dL Calcium 8.4 L (8.6-10.3) mg/dL Total Bilirubin 5.5 H (0.3-1.0) mg/dL AST 2508 H (13-39) Units/L ALT 3152 H (7-52) Units/L Alkaline Phosphatase 211 H (34-104) Units/L Albumin 3.5 (3.5-5.7) g/dL - VTE Documentation of Mechanical Device: Graduated compression elastic hosiery Consult Discharge Plan - Plan Referrals: Valerie Orellana MD [Primary Care Provider] -
[2018-11-08] MEDS: Ampicillin/Sulbactam 3,000 MG in 0.9 % Sodium Chloride Mini Bag 100 ML IVPB SCH ×2 (00:26→04:57)
[2018-11-08] MEDS: 0.9 % Sodium Chloride 1,000 ML IVC SCH ×3 (03:51→21:03)
[2018-11-08 06:30] LABS: Basophils % 0.5 %; Eosinophils % 0.8 %; Hematocrit 41.3 % (37.5-50.1); Hemoglobin 13.4 g/dL (12.9-16.9); Immature Granulocytes % 0.3 % (0-4); Lymphocytes # 0.9 K/mcL (0.6-4.6); Lymphocytes % 24.7 %; Mean Corpuscular HGB Conc 32.4 g/dL (31.6-35.5); Mean Corpuscular Hemoglobin 28.2 pg (28.0-33.3); Mean Corpuscular Volume 86.9 fL (83.0-100.0); Monocytes # 0.7 K/mcL (0.0-1.3); Monocytes % 18.8 %; Platelet Count 207 K/mcL (140-400); Red Blood Count 4.75 M/mcL (4.19-5.50); Red Cell Distribution Width 14.1 % (11.5-14.5); Segmented Neutrophils % 54.9 %; White Blood Count 3.7 K/mcL (4.3-11.1)
[2018-11-08 06:59] LABS: Platelet Estimate Normal (Normal); Reactive Lymphocytes Present (Not Present)
[2018-11-08 07:13] LABS: Alanine Aminotransferase 2705 Units/L (7-52); Albumin 3.2 g/dL (3.5-5.7); Alkaline Phosphatase 188 Units/L (34-104); Aspartate Amino Transferase 2024 Units/L (13-39); BUN/Creatinine Ratio 7 (6-26); Bilirubin,Total 6.2 mg/dL (0.3-1.0); Blood Urea Nitrogen 5 mg/dL (8-23); Calcium 8.3 mg/dL (8.6-10.3); Carbon Dioxide 27 mEq/L (23-29); Chloride 107 mEq/L (98-107); Globulin 3.3 g/dL (2.4-3.5); Glucose 108 mg/dL (70-105); Magnesium 1.9 mg/dL (1.6-2.6); Osmolality,Calculated 278 (280-300); Phosphorous 2.4 mg/dL (2.7-4.5); Potassium 3.7 mEq/L (3.5-5.1); Sodium 135 mEq/L (136-145); Total Protein 6.5 g/dL (6.4-8.9); eGFR For African Americans > 60 (> 60); eGFR For Non-African Americans > 60 (> 60)
--- NOTE | 2018-11-08 08:21 | Internal Med Progress Note ---
Hospitalist Progress Note - Encounter Date of Encounter: 11/08/18 Time of Encounter: 08:00 - Subjective Interval History: No acute events overnight - Exam Vitals: Temp Pulse Resp BP Pulse Ox 98.5 F 57 16 144/67 96 11/08/18 07:23 11/08/18 07:23 11/08/18 07:23 11/08/18 07:23 11/08/18 07:23 Exam: General appearance: Present: A&O X 3, no acute distress Head exam: Present: normocephalic Respiratory exam: Present: CTAB. Absent: accessory muscle use, rales, rhonchi, wheezes Cardiovascular exam: Present: RRR, +S1, +S2. Absent: diastolic murmur, gallop, rubs, systolic murmur GI/Abdominal exam: Soft, NT, ND, +BS Extremities exam: Absent: pedal edema Neurological exam: Present: alert, oriented X3, no focal deficits. Absent: altered - Assessment and Plan (1) Acute hepatic failure Current Visit: Yes Status: Acute Assessment and Plan: Pt comes in with malaise, nausea and weakness 2/2 to acute hepatitis A infection Continue IV fluids and supportive care. Monitor daily LFTs Clinically stable. LFTS trending down (2) Hepatitis A Current Visit: Yes Status: Acute Assessment and Plan: See #1. COntinue IV fluids. Supportive care (3) Acute cholecystitis Current Visit: Yes Status: Acute Assessment and Plan: Pt had what appeared to be cholecystitis on CT abdomen. Clinically abdominal exam unimpressive Seen by surgery , no acute intervention planned. CT findings may be related to liver inflammation from liver failure Continue empiric antibiotics per surgery (4) Diabetes mellitus Current Visit: Yes Status: Acute Assessment and Plan: Continue insulin and monitor fingersticks (5) DVT prophylaxis Current Visit: Yes Status: Acute Assessment and Plan: Heparin sc - Time Spent with Patient Total time spent is greater than 50% in coordination of care (as documented) at patient's floor/unit and/or counseling patient: Internal Medicine: Result - Labs CBC & Chem 7: 11/08/18 05:43 11/08/18 05:43 Labs: Short CBC 11/07/18 11/08/18 Range/Units 10:05 05:43 WBC 3.9 L 3.7 L (4.3-11.1) K/mcL Hgb 14.6 13.4 (12.9-16.9) g/dL Hct 44.8 41.3 (37.5-50.1) % Plt Count 245 207 (140-400) K/mcL Neutrophils # 2.4 2.0 (1.6-8.9) K/mcL BMP 11/07/18 11/08/18 10:05 05:43 Sodium 135 L 135 L Potassium 3.9 3.7 Chloride 103 107 Carbon Dioxide 26 27 BUN 6 L 5 L Creatinine 0.70 0.70 Glucose 141 H 108 H Calcium 8.4 L 8.3 L Liver Function 11/07/18 11/08/18 Range/Units 10:05 05:43 Total Bilirubin 5.5 H 6.2 H (0.3-1.0) mg/dL AST 2508 H 2024 H (13-39) Units/L ALT 3152 H 2705 H (7-52) Units/L Alkaline Phosphatase 211 H 188 H (34-104) Units/L Albumin 3.5 3.2 L (3.5-5.7) g/dL - ABG Interpretation ABG results: PT/INR, D-dimer PT 14.5 Seconds (9.4-12.1) H 11/06/18 01:23 - VTE Documentation of Mechanical Device: Graduated compression elastic hosiery Consult Discharge Plan - Plan Referrals: Valerie Orellana MD [Primary Care Provider] - (1) Acute hepatic failure Qualifiers: Qualified Code(s): K72.00 - Acute and subacute hepatic failure without coma (2) Hepatitis A Qualifiers: Hepatic coma status: without hepatic coma Qualified Code(s): B15.9 - Hepatitis A without hepatic coma
[2018-11-08] MEDS: Insulin LISPRO 300 UNITS/3 ML VIAL SQ SCH ×4 (08:46→21:05)
[2018-11-08] MEDS: Famotidine 20 MG TABLET PO SCH ×2 (08:46→21:03)
[2018-11-09] MEDS: 0.9 % Sodium Chloride 1,000 ML IVC SCH ×6 (03:59→22:10)
[2018-11-09 06:29] LABS: Basophils % 0.7 %; Eosinophils # 0.1 K/mcL (0.0-0.6); Eosinophils % 1.3 %; Hematocrit 42.8 % (37.5-50.1); Hemoglobin 13.8 g/dL (12.9-16.9); Immature Granulocytes % 0.4 % (0-4); Lymphocytes # 1.3 K/mcL (0.6-4.6); Lymphocytes % 29.2 %; Mean Corpuscular HGB Conc 32.2 g/dL (31.6-35.5); Mean Corpuscular Hemoglobin 28.2 pg (28.0-33.3); Mean Corpuscular Volume 87.3 fL (83.0-100.0); Mean Platelet Volume 10.4 fL (9.4-12.4); Monocytes # 0.6 K/mcL (0.0-1.3); Monocytes % 13.4 %; Neutrophils # 2.5 K/mcL (1.6-8.9); Platelet Count 227 K/mcL (140-400); Red Cell Distribution Width 14.2 % (11.5-14.5); White Blood Count 4.5 K/mcL (4.3-11.1)
[2018-11-09 07:27] LABS: Alanine Aminotransferase 2524 Units/L (7-52); Albumin 3.4 g/dL (3.5-5.7); Alkaline Phosphatase 198 Units/L (34-104); Aspartate Amino Transferase 1725 Units/L (13-39); BUN/Creatinine Ratio 8 (6-26); Blood Urea Nitrogen 6 mg/dL (8-23); Calcium 8.6 mg/dL (8.6-10.3); Carbon Dioxide 25 mEq/L (23-29); Chloride 105 mEq/L (98-107); Globulin 3.5 g/dL (2.4-3.5); Glucose 127 mg/dL (70-105); Magnesium 1.9 mg/dL (1.6-2.6); Osmolality,Calculated 279 (280-300); Phosphorous 2.3 mg/dL (2.7-4.5); Potassium 3.7 mEq/L (3.5-5.1); Sodium 135 mEq/L (136-145); Total Protein 6.9 g/dL (6.4-8.9); eGFR For African Americans > 60 (> 60); eGFR For Non-African Americans > 60 (> 60)
--- NOTE | 2018-11-09 08:03 | Internal Med Progress Note ---
Hospitalist Progress Note - Encounter Date of Encounter: 11/09/18 Time of Encounter: 08:00 - Subjective Interval History: No acute events overnight - Exam Vitals: Temp Pulse Resp BP Pulse Ox 97.7 F 66 16 136/74 97 11/09/18 07:24 11/09/18 07:24 11/09/18 07:24 11/09/18 07:24 11/09/18 07:24 Exam: General appearance: Present: A&O X 3, no acute distress Head exam: Present: normocephalic Respiratory exam: Present: CTAB. Absent: accessory muscle use, rales, rhonchi, wheezes Cardiovascular exam: Present: RRR, +S1, +S2. Absent: diastolic murmur, gallop, rubs, systolic murmur GI/Abdominal exam: Soft, NT, ND, +BS Extremities exam: Absent: pedal edema Neurological exam: Present: alert, oriented X3, no focal deficits. Absent: altered - Assessment and Plan (1) Acute hepatic failure Current Visit: Yes Status: Acute Assessment and Plan: Pt comes in with malaise, nausea and weakness 2/2 to acute hepatitis A infection Continue IV fluids and supportive care. Monitor daily LFTs Clinically stable. LFTS trending down (2) Hepatitis A Current Visit: Yes Status: Acute Assessment and Plan: See #1. COntinue IV fluids. Supportive care (3) Acute cholecystitis Current Visit: Yes Status: Acute Assessment and Plan: Pt had what appeared to be cholecystitis on CT abdomen. Clinically abdominal exam unimpressive Seen by surgery , no acute intervention planned. CT findings may be related to liver inflammation from liver failure Continue empiric antibiotics per surgery (4) Diabetes mellitus Current Visit: Yes Status: Acute Assessment and Plan: Continue insulin and monitor fingersticks (5) DVT prophylaxis Current Visit: Yes Status: Acute Assessment and Plan: Heparin sc - Time Spent with Patient Total time spent is greater than 50% in coordination of care (as documented) at patient's floor/unit and/or counseling patient: Internal Medicine: Result - Labs CBC & Chem 7: 11/09/18 05:35 11/09/18 05:35 Labs: Short CBC 11/09/18 Range/Units 05:35 WBC 4.5 (4.3-11.1) K/mcL Hgb 13.8 (12.9-16.9) g/dL Hct 42.8 (37.5-50.1) % Plt Count 227 (140-400) K/mcL Neutrophils # 2.5 (1.6-8.9) K/mcL BMP 11/09/18 05:35 Sodium 135 L Potassium 3.7 Chloride 105 Carbon Dioxide 25 BUN 6 L Creatinine 0.76 Glucose 127 H Calcium 8.6 Liver Function 11/09/18 Range/Units 05:35 Total Bilirubin 8.0 H (0.3-1.0) mg/dL AST 1725 H (13-39) Units/L ALT 2524 H (7-52) Units/L Alkaline Phosphatase 198 H (34-104) Units/L Albumin 3.4 L (3.5-5.7) g/dL - ABG Interpretation ABG results: PT/INR, D-dimer PT 14.5 Seconds (9.4-12.1) H 11/06/18 01:23 - VTE Documentation of Mechanical Device: Graduated compression elastic hosiery Consult Discharge Plan - Plan Referrals: Valerie Orellana MD [Primary Care Provider] - (1) Acute hepatic failure Qualifiers: Qualified Code(s): K72.00 - Acute and subacute hepatic failure without coma (2) Hepatitis A Qualifiers: Hepatic coma status: without hepatic coma Qualified Code(s): B15.9 - Hepatitis A without hepatic coma
[2018-11-09] MEDS: Insulin LISPRO 300 UNITS/3 ML VIAL SQ SCH ×4 (08:37→20:56)
[2018-11-09] MEDS: Famotidine 20 MG TABLET PO SCH ×2 (09:02→21:02)
[2018-11-10] MEDS: 0.9 % Sodium Chloride 1,000 ML IVC SCH ×3 (03:21→16:29)
[2018-11-10 06:03] LABS: Basophils % 0.7 %; Eosinophils # 0.1 K/mcL (0.0-0.6); Eosinophils % 1.4 %; Hematocrit 39.4 % (37.5-50.1); Hemoglobin 12.9 g/dL (12.9-16.9); Immature Granulocytes % 0.7 % (0-4); Lymphocytes # 1.1 K/mcL (0.6-4.6); Lymphocytes % 25.7 %; Mean Corpuscular HGB Conc 32.7 g/dL (31.6-35.5); Mean Corpuscular Hemoglobin 28.4 pg (28.0-33.3); Mean Corpuscular Volume 86.6 fL (83.0-100.0); Mean Platelet Volume 10.4 fL (9.4-12.4); Monocytes # 0.6 K/mcL (0.0-1.3); Monocytes % 14.1 %; Neutrophils # 2.4 K/mcL (1.6-8.9); Platelet Count 211 K/mcL (140-400); Red Blood Count 4.55 M/mcL (4.19-5.50); Red Cell Distribution Width 14.6 % (11.5-14.5); Segmented Neutrophils % 57.4 %; White Blood Count 4.2 K/mcL (4.3-11.1)
[2018-11-10 06:29] LABS: Platelet Estimate Normal (Normal)
[2018-11-10 06:43] LABS: Alanine Aminotransferase 2061 Units/L (7-52); Albumin/Globulin Ratio 0.9 (1.1-2.2); Alkaline Phosphatase 167 Units/L (34-104); Aspartate Amino Transferase 1313 Units/L (13-39); BUN/Creatinine Ratio 8 (6-26); Bilirubin,Total 7.8 mg/dL (0.3-1.0); Blood Urea Nitrogen 5 mg/dL (8-23); Calcium 8.1 mg/dL (8.6-10.3); Carbon Dioxide 24 mEq/L (23-29); Chloride 109 mEq/L (98-107); Globulin 3.3 g/dL (2.4-3.5); Glucose 109 mg/dL (70-105); Magnesium 1.8 mg/dL (1.6-2.6); Osmolality,Calculated 284 (280-300); Phosphorous 2.4 mg/dL (2.7-4.5); Potassium 3.8 mEq/L (3.5-5.1); Sodium 138 mEq/L (136-145); Total Protein 6.3 g/dL (6.4-8.9); eGFR For African Americans > 60 (> 60); eGFR For Non-African Americans > 60 (> 60)
[2018-11-10] MEDS: Insulin LISPRO 300 UNITS/3 ML VIAL SQ SCH ×4 (08:01→20:44)
[2018-11-10] MEDS: Famotidine 20 MG TABLET PO SCH ×2 (08:02→20:47)
--- NOTE | 2018-11-10 09:12 | Discharge Summary ---
Date of Encounter: 11/10/18 Time of Encounter: 09:00 - Discharge Diagnosis (1) Acute hepatic failure Priority: Primary Status: Acute Assessment and Plan: Sharath Davila is a 58-year-old diabetic man with a mental disability who is brought to the emergency room for evaluation of abnormal lab tests that were ordered by his primary care provider yesterday. He presented in accompaniment of his guardian who provided much of the history. It is stated that for the past week he has been with generalized malaise, anorexia and generally feeling unwell. He complained of pain in his right upper quadrant since 3 days ago and had mild vomiting yesterday. No diarrhea, fever or chills are reported. His urine is darker than usual but he denies color change in his stool. On arrival he is hemodynamically stable. Lab work done revealed leukopenia 3.6 and his LFTs noted from his primary care visit are remarkable with an ALT of ~3200 and AST of ~2200 with a total bilirubin of 4.8. A CT of his abdomen was done which reported an impression of findings suggestive of acute cholecystitis He was assessed with with malaise, nausea and weakness with acute hepatic failure 2/2 to acute hepatitis A infection. He was treated with IV fluids and supportive care. He clinically improved and LFTs trended down. he was initialy unable to tolerate a diet but that resolved as well. LFTs were down to the low 1000s on discharge. Spoke with radhika HERCULES for discharge with outpatient follow up and outpatient CMP in a week CT scan on admission showed findings suspicious for cholecystitis but his exam was unremarkable. Findings most likely secondary to liver inflammation. He was seen by surgery and determined no acute indication for surgery. Outpatient follow up. 35 minutes was spent discharging this patient Qualifiers: Qualified Code(s): K72.00 - Acute and subacute hepatic failure without coma (2) Hepatitis A Priority: Primary Status: Acute Qualifiers: Hepatic coma status: without hepatic coma Qualified Code(s): B15.9 - Hepatitis A without hepatic coma (3) Acute cholecystitis Priority: Primary Status: Acute (4) Diabetes mellitus Priority: Primary Status: Acute Qualifiers: Qualified Code(s): E11.9 - Type 2 diabetes mellitus without complications (5) DVT prophylaxis Priority: Primary Status: Acute Hospital course: Mr. Davila is a 58 year old male - Time Spent with Patient Total time spent providing and/or coordinating discharge services: - Discharge Medications Prescriptions: Continued Ciprofloxacin HCl [Cipro] 500 mg PO BID Fluticasone Propionate Nasal [Flonase] 100 mcg NS DAILY PRN PRN Reason: Allergy Symptoms Loratadine [Claritin] 10 mg PO DAILY PRN PRN Reason: Allergy Symptoms Metformin HCl [Metformin HCl ER] 750 mg PO QAM Omeprazole [PriLOSEC] 40 mg PO QAM raNITIdine HCl [Zantac] 150 mg PO BID Atorvastatin Calcium 80 mg PO HS #20 tab Home Medications: Ciprofloxacin HCl [Cipro] 500 mg PO BID 11/06/18 [History] Fluticasone Propionate Nasal [Flonase] 100 mcg NS DAILY PRN 11/06/18 [History] Loratadine [Claritin] 10 mg PO DAILY PRN 11/06/18 [History] Metformin HCl [Metformin HCl ER] 750 mg PO QAM 11/06/18 [History] Omeprazole [PriLOSEC] 40 mg PO QAM 11/06/18 [History] raNITIdine HCl [Zantac] 150 mg PO BID 11/06/18 [History] Atorvastatin Calcium 80 mg PO HS #20 tab 11/10/18 [Rx] Allergies/Adverse Reactions: Allergy/AdvReac Type Severity Reaction Status Date / Time egg Allergy Mild See Verified 11/06/18 21:59 Comments milk Allergy See Verified 11/06/18 21:59 Comments sulfamethoxazole Allergy See Verified 11/06/18 21:59 [From Bactrim] Comments trimethoprim [From Bactrim] Allergy See Verified 11/06/18 21:59 Comments Date of admission: 11/07/18 18:33 Primary care physician: Valerie Orellana Consults: 11/06/18 04:26 Consult to Gastroenterology [CONS] Stat Consulting Provider: Gastroenterology [facility] Reason for Consult: RUQ pain, transaminitis Call Completed: Yes Consult to Surgery [CONS] Stat Consulting Provider: [facility] Reason for Consult: RUQ pain, transaminitis Call Completed: Yes - Constitutional Vitals: Temp Pulse Resp BP Pulse Ox 97.6 F 92 15 134/69 100 11/10/18 07:12 11/10/18 07:12 11/10/18 07:12 11/10/18 07:12 11/10/18 07:12 Exam: General appearance: Present: A&O X 3, no acute distress Head exam: Present: normocephalic Respiratory exam: Present: CTAB. Absent: accessory muscle use, rales, rhonchi, wheezes Cardiovascular exam: Present: RRR, +S1, +S2. Absent: diastolic murmur, gallop, rubs, systolic murmur GI/Abdominal exam: Soft, NT, ND, +BS Extremities exam: Absent: pedal edema Neurological exam: Present: alert, oriented X3, no focal deficits. Absent: altered - Patient Status Disposition: Home, Self-Care Condition: Good - Ambulatory Orders Ambulatory Orders: Comprehensive Metabolic Panel [CHEM] Time Frame: 1 Week, Facility: [facility], Location: [facility] - Discharge Instructions Follow Up With: Valerie Orellana MD [Primary Care Provider] - (Web request. Office will call with appt. date and time. Thank you) - VTE Documentation of Mechanical Device: Graduated compression elastic hosiery
[2018-11-10] MEDS ORDERED: FLU Vac QV 19-20 (6Month+)/PF 0.5 ML SYRINGE IM ONE (09:32)
--- NOTE | 2018-11-10 16:50 | Event Note ---
Date of Encounter: 11/10/18 Time of Encounter: 16:00 Pt had been tolerating his diet for the past 3 days and LFTs were trending down. Discharge orders placed, but patient says hes beginning to feel nauseous again Discharge held. Restart IV fluids. Restarted cefepime for coverage for choleystitis. Surgery consulted in case this persistent malaise may be related to findings of cholecystitis. Spoke with Dr George nurse
[2018-11-10] MEDS ORDERED: Cefepime HCl 1,000 MG in Water for inj. (sterile) 10 ML IVP SCH (18:00)
[2018-11-11] MEDS: 0.9 % Sodium Chloride 1,000 ML IVC SCH ×2 (00:29→03:31)
[2018-11-11 05:47] LABS: Basophils % 0.8 %; Eosinophils # 0.1 K/mcL (0.0-0.6); Eosinophils % 1.1 %; Hemoglobin 12.9 g/dL (12.9-16.9); Immature Granulocytes % 0.6 % (0-4); Lymphocytes # 1.6 K/mcL (0.6-4.6); Lymphocytes % 33.1 %; Mean Corpuscular HGB Conc 33.1 g/dL (31.6-35.5); Mean Corpuscular Hemoglobin 28.5 pg (28.0-33.3); Mean Corpuscular Volume 86.3 fL (83.0-100.0); Mean Platelet Volume 10.5 fL (9.4-12.4); Monocytes # 0.7 K/mcL (0.0-1.3); Monocytes % 14.3 %; Neutrophils # 2.4 K/mcL (1.6-8.9); Platelet Count 235 K/mcL (140-400); Red Blood Count 4.52 M/mcL (4.19-5.50); Red Cell Distribution Width 14.6 % (11.5-14.5); Segmented Neutrophils % 50.1 %; White Blood Count 4.7 K/mcL (4.3-11.1)
[2018-11-11 06:18] LABS: Platelet Estimate Normal (Normal); Reactive Lymphocytes Present (Not Present)
[2018-11-11 07:00] LABS: Albumin/Globulin Ratio 0.9 (1.1-2.2); Alkaline Phosphatase 176 Units/L (34-104); Aspartate Amino Transferase 798 Units/L (13-39); BUN/Creatinine Ratio 7 (6-26); Bilirubin,Total 8.3 mg/dL (0.3-1.0); Blood Urea Nitrogen 5 mg/dL (8-23); Calcium 8.2 mg/dL (8.6-10.3); Carbon Dioxide 25 mEq/L (23-29); Chloride 109 mEq/L (98-107); Globulin 3.2 g/dL (2.4-3.5); Glucose 86 mg/dL (70-105); Magnesium 1.8 mg/dL (1.6-2.6); Osmolality,Calculated 283 (280-300); Phosphorous 2.7 mg/dL (2.7-4.5); Potassium 3.6 mEq/L (3.5-5.1); Sodium 138 mEq/L (136-145); Total Protein 6.2 g/dL (6.4-8.9); eGFR For African Americans > 60 (> 60); eGFR For Non-African Americans > 60 (> 60)
[2018-11-11 07:22] LABS: Alanine Aminotransferase 1622 Units/L (7-52)
[2018-11-11] MEDS: Famotidine 20 MG TABLET PO SCH (10:08)
[2018-11-11] MEDS: Insulin LISPRO 300 UNITS/3 ML VIAL SQ SCH ×2 (10:08→17:24)
[2018-11-11 10:33] VITALS: BP 137/81
--- NOTE | 2018-11-11 14:49 | Internal Med Progress Note ---
Hospitalist Progress Note - Encounter Date of Encounter: 11/11/18 Time of Encounter: 08:35 - Subjective Interval History: No major events overnight. Patient was seen this a.m. He denied fever, chills or night sweats. He has no nausea, vomiting or abdominal pain. Patient denied chest pain, shortness of breath or palpitation. - Exam Vitals: Temp Pulse Resp BP Pulse Ox 97.9 F 74 15 137/81 97 11/11/18 10:30 11/11/18 10:30 11/11/18 10:30 11/11/18 10:30 11/11/18 10:30 Exam: General appearance: Present: A&O X 3, no acute distress Eyes: Sclera icterus presents. PERRLA Head exam: Present: normocephalic Respiratory exam: Present: CTAB. Absent: accessory muscle use, rales, rhonchi, wheezes Cardiovascular exam: Present: RRR, +S1, +S2. Absent: diastolic murmur, gallop, rubs, systolic murmur GI/Abdominal exam: Soft, NT, ND, +BS Extremities exam: Absent: pedal edema Neurological exam: Present: alert, oriented X3, no focal deficits. Absent: altered - Assessment and Plan (1) Acute hepatic failure Current Visit: Yes Status: Acute Assessment and Plan: -from hepatitis A infection as he ate t cheeseburgers before this happens. - Managment was supportive and LFT trended down. - Patient is asymptomatic. He denied nausea/vomiting or abdominal pain today. (2) Hepatitis A Current Visit: Yes Status: Acute Assessment and Plan: PER above (3) Acute cholecystitis Current Visit: Yes Status: Acute Assessment and Plan: Pt had what appeared to be cholecystitis on CT abdomen. Clinically abdominal exam unimpressive Seen by surgery , no acute intervention planned. CT findings may be related to liver inflammation from liver failure Continue empiric antibiotics per surgery (4) Diabetes mellitus Current Visit: Yes Status: Acute Assessment and Plan: Continue insulin and monitor fingersticks (5) DVT prophylaxis Current Visit: Yes Status: Acute - Summary of Assessment and Plan Summary of Assessment and Plan: Patient will be discharged home in stable condition today. Discharge summary dictated by Dr. Mejia - Time Spent with Patient Total time spent is greater than 50% in coordination of care (as documented) at patient's floor/unit and/or counseling patient: Plan of Care Discussed with: patient Internal Medicine: Result - Labs CBC & Chem 7: 11/11/18 05:05 11/11/18 05:05 Labs: Short CBC 11/11/18 Range/Units 05:05 WBC 4.7 (4.3-11.1) K/mcL Hgb 12.9 (12.9-16.9) g/dL Hct 39.0 (37.5-50.1) % Plt Count 235 (140-400) K/mcL Neutrophils # 2.4 (1.6-8.9) K/mcL BMP 11/11/18 05:05 Sodium 138 Potassium 3.6 Chloride 109 H Carbon Dioxide 25 BUN 5 L Creatinine 0.68 L Glucose 86 Calcium 8.2 L Liver Function 11/11/18 Range/Units 05:05 Total Bilirubin 8.3 H (0.3-1.0) mg/dL AST 798 H (13-39) Units/L ALT 1622 H (7-52) Units/L Alkaline Phosphatase 176 H (34-104) Units/L Albumin 3.0 L (3.5-5.7) g/dL - ABG Interpretation ABG results: PT/INR, D-dimer PT 14.5 Seconds (9.4-12.1) H 11/06/18 01:23 - VTE Documentation of Mechanical Device: Graduated compression elastic hosiery Consult Discharge Plan - Plan Referrals: Valerie Orellana MD [Primary Care Provider] - (Web request. Office will call with appt. date and time. Thank you) Girish Jack MD [Partnered Physician] - (Web request. Office will call with date and time of appointment. Thank you) Prescriptions: Atorvastatin Calcium 80 mg PO HS #20 tab Prescription Printed (1) Acute hepatic failure Qualifiers: Hepatic coma status: without hepatic coma Qualified Code(s): K72.00 - Acute and subacute hepatic failure without coma (2) Hepatitis A Qualifiers: Hepatic coma status: without hepatic coma Qualified Code(s): B15.9 - Hepatitis A without hepatic coma (4) Diabetes mellitus Qualifiers: Diabetes mellitus type: type 2 Diabetes mellitus ferry terminal supervisor insulin use: without ferry terminal supervisor use Diabetes mellitus complication status: without complication Qualified Code(s): E11.9 - Type 2 diabetes mellitus without complications
== END 2018-11-11 17:49 | disposition home or self-care (01) ==
LOC: EMEROOARM 00:01 → 3ANU 00:01 → SUATTDRO 11-07 18:33
PROVIDERS: ADMIT Internal Medicine; ATTEND Internal Medicine

== ENCOUNTER 2019-10-20 14:33 | Observation (INO) ==
[2019-10-20 15:36] LABS: Basophils % 0.4 %; Eosinophils % 0.5 %; Hematocrit 40.9 % (37.5-50.1); Hemoglobin 13.2 g/dL (12.9-16.9); Immature Granulocytes % 0.1 % (0-4); Lymphocytes # 1.7 K/mcL (0.6-4.6); Mean Corpuscular HGB Conc 32.3 g/dL (31.6-35.5); Mean Corpuscular Hemoglobin 28.5 pg (28.0-33.3); Mean Corpuscular Volume 88.3 fL (83.0-100.0); Mean Platelet Volume 10.1 fL (9.4-12.4); Monocytes # 0.8 K/mcL (0.0-1.3); Monocytes % 10.4 %; Neutrophils # 5.1 K/mcL (1.6-8.9); Platelet Count 183 K/mcL (140-400); Red Blood Count 4.63 M/mcL (4.19-5.50); Red Cell Distribution Width 13.4 % (11.5-14.5); Segmented Neutrophils % 66.6 %; White Blood Count 7.7 K/mcL (4.3-11.1)
[2019-10-20 15:36] LABS: VBG HCO3 28 mEq/L (21-27); VBG PCO2 51 mmHg (41-51); VBG PH 7.34 pH Units (7.32-7.42); VBG PO2 58 mmHg (25-50)
[2019-10-20 15:59] LABS: BUN/Creatinine Ratio 14 (6-26); Blood Urea Nitrogen 11 mg/dL (8-23); Calcium 9.1 mg/dL (8.6-10.3); Carbon Dioxide 28 mEq/L (23-29); Chloride 106 mEq/L (98-107); Glucose 101 mg/dL (70-105); Osmolality,Calculated 288 (280-300); Potassium 3.7 mEq/L (3.5-5.1); Sodium 139 mEq/L (136-145); eGFR For African Americans > 60 (> 60); eGFR For Non-African Americans > 60 (> 60)
[2019-10-20] MEDS ORDERED: *HR* Promethazine 25 MG/ML VIAL IVP PRN (16:03)
[2019-10-20] MEDS ORDERED: Acetaminophen 325 MG TABLET PO PRN (16:03)
[2019-10-20] MEDS ORDERED: Dextrose Gel 15 GM/37.5 ML TUBE PO PRN ×2 (16:09)
[2019-10-20] MEDS ORDERED: D5% in Water 1,000 ML IVC PRN (16:09)
[2019-10-20] MEDS ORDERED: *HR* Dextrose 50 % in Water (Vial) 50 ML VIAL IVP PRN (16:09)
[2019-10-20] MEDS ORDERED: Ketorolac 15 MG/ML VIAL IVP PRN ×2 (16:10→16:43)
[2019-10-20 16:23] LABS: INR 1.1; Prothrombin Time 12.4 Seconds (9.4-12.1)
[2019-10-20] MEDS: *HR* Enoxaparin 40 MG/0.4 ML SYRINGE SQ SCH (18:40)
[2019-10-20] MEDS: Insulin LISPRO 300 UNITS/3 ML VIAL SQ SCH (18:43)
[2019-10-20 19:20] LABS: Adenovirus Not Detected (Not Detect); Bordetella Pertussis Not Detected (Not Detect); Chlamydophila pneumoniae Not Detected (Not Detect); Coronavirus 229E Not Detected (Not Detect); Coronavirus HKU1 Not Detected (Not Detect); Coronavirus NL63 Not Detected (Not Detect); Coronavirus OC43 Not Detected (Not Detect); Human Metapneumovirus Not Detected (Not Detect); Human Rhinovirus/Enterovirus Not Detected (Not Detect); Influenza A Subtype 2009 H1 Not Detected (Not Detect); Influenza B Not Detected (Not Detect); Mycoplasma pneumoniae Not Detected (Not Detect); Parainfluenza Virus 1 Not Detected (Not Detect); Parainfluenza Virus 2 Not Detected (Not Detect); Parainfluenza Virus 3 Not Detected (Not Detect); Parainfluenza Virus 4 Not Detected (Not Detect); Respiratory Syncytial Virus Not Detected (Not Detect); SARS-CoV-2 Not Detected (Not Detect)
[2019-10-20] MEDS ORDERED: Insulin LISPRO 300 UNITS/3 ML VIAL SQ SCH (21:00)
[2019-10-20] MEDS: *HR* OxyCODONE Immed Rel 5 MG TABLET PO PRN (21:47)
[2019-10-21] MEDS: *HR* OxyCODONE Immed Rel 5 MG TABLET PO PRN ×2 (03:00→14:56)
[2019-10-21] MEDS: *HR* Enoxaparin 40 MG/0.4 ML SYRINGE SQ SCH (05:36)
[2019-10-21] MEDS ORDERED: Chloraseptic Spray 177 ML BOTTLE MM PRN ×2 (06:20→19:52)
[2019-10-21 07:43] LABS: Hematocrit 41.2 % (37.5-50.1); Hemoglobin 13.3 g/dL (12.9-16.9); Mean Corpuscular HGB Conc 32.3 g/dL (31.6-35.5); Mean Corpuscular Hemoglobin 28.4 pg (28.0-33.3); Mean Corpuscular Volume 87.8 fL (83.0-100.0); Mean Platelet Volume 10.5 fL (9.4-12.4); Platelet Count 201 K/mcL (140-400); Red Blood Count 4.69 M/mcL (4.19-5.50); Red Cell Distribution Width 13.4 % (11.5-14.5); White Blood Count 6.5 K/mcL (4.3-11.1)
[2019-10-21 08:07] LABS: BUN/Creatinine Ratio 17 (6-26); Blood Urea Nitrogen 11 mg/dL (8-23); Calcium 9.1 mg/dL (8.6-10.3); Carbon Dioxide 27 mEq/L (23-29); Chloride 103 mEq/L (98-107); Glucose 110 mg/dL (70-105); Osmolality,Calculated 284 (280-300); Potassium 3.7 mEq/L (3.5-5.1); Sodium 137 mEq/L (136-145); eGFR For African Americans > 60 (> 60); eGFR For Non-African Americans > 60 (> 60)
[2019-10-21] MEDS ORDERED: Famotidine 20 MG TABLET PO SCH (09:00)
[2019-10-21] MEDS: Insulin LISPRO 300 UNITS/3 ML VIAL SQ SCH ×4 (09:19→21:00)
[2019-10-21] MEDS ORDERED: Lidocaine 1% 20 ML MDV ONE (16:12)
[2019-10-21] MEDS ORDERED: *HR* FentaNYL (PF) 100 MCG/2 ML VIAL ONE (17:05)
[2019-10-21] MEDS ORDERED: *HR* Midazolam HCl 2 MG/2 ML VIAL ONE (17:05)
[2019-10-21] MEDS ORDERED: *HR* Propofol 200 MG/20 ML VIAL IVP ONE (17:05)
[2019-10-21] MEDS ORDERED: Lidocaine -MPF 2% 2 ML VIAL ONE (17:06)
[2019-10-21] MEDS ORDERED: Ropivacaine/PF 0.5% 30 ML VIAL ONE (17:27)
[2019-10-21] MEDS ORDERED: *HR* FentaNYL (PF) 100 MCG/2 ML VIAL IVP PRN ×2 (17:41→19:52)
[2019-10-21] MEDS ORDERED: *HR* HYDROmorphone PF 0.5 MG/0.5 ML SYRINGE IVP PRN ×2 (17:41→19:52)
[2019-10-21] MEDS ORDERED: Naloxone 0.4 MG/ML INJ IVP PRN ×2 (17:43→19:52)
[2019-10-21] MEDS ORDERED: *HR* Metoprolol 5 MG/5 ML VIAL IVP PRN ×2 (17:43→19:52)
[2019-10-21] MEDS ORDERED: Ondansetron 4 MG/2 ML VIAL IVP ONE ×2 (17:43→19:52)
[2019-10-21] MEDS ORDERED: Ringers Solution, Lactated 1,000 ML IVC SCH ×2 (17:45→19:52)
[2019-10-21] MEDS ORDERED: D5% in Water 1,000 ML IVC PRN (19:52)
[2019-10-21] MEDS ORDERED: Dextrose Gel 15 GM/37.5 ML TUBE PO PRN ×2 (19:52)
[2019-10-21] MEDS ORDERED: Ketorolac 15 MG/ML VIAL IVP PRN (19:52)
[2019-10-21] MEDS ORDERED: *HR* Promethazine 25 MG/ML VIAL IVP PRN (19:52)
[2019-10-21] MEDS ORDERED: *HR* Dextrose 50 % in Water (Vial) 50 ML VIAL IVP PRN (19:52)
[2019-10-22] MEDS: *HR* Enoxaparin 40 MG/0.4 ML SYRINGE SQ SCH (05:36)
[2019-10-22] MEDS: Insulin LISPRO 300 UNITS/3 ML VIAL SQ SCH ×4 (08:29→20:04)
[2019-10-22] MEDS: Famotidine 20 MG TABLET PO SCH (08:30)
[2019-10-22] MEDS: cephALEXin 500 MG CAPSULE PO SCH ×2 (14:26→20:02)
[2019-10-22] MEDS: Acetaminophen 325 MG TABLET PO PRN (14:58)
[2019-10-22] MEDS ORDERED: tiZANidine 4 MG TABLET PO PRN (16:35)
[2019-10-22] MEDS: *HR* OxyCODONE Immed Rel 5 MG TABLET PO PRN (23:05)
[2019-10-23] MEDS: *HR* Enoxaparin 40 MG/0.4 ML SYRINGE SQ SCH (05:46)
[2019-10-23] MEDS: *HR* OxyCODONE Immed Rel 5 MG TABLET PO PRN ×2 (05:51→20:02)
[2019-10-23 07:40] LABS: Hemoglobin 13.4 g/dL (12.9-16.9); Mean Corpuscular HGB Conc 33.5 g/dL (31.6-35.5); Mean Corpuscular Hemoglobin 29.4 pg (28.0-33.3); Mean Corpuscular Volume 87.7 fL (83.0-100.0); Platelet Count 190 K/mcL (140-400); Red Blood Count 4.56 M/mcL (4.19-5.50); Red Cell Distribution Width 13.2 % (11.5-14.5); White Blood Count 5.9 K/mcL (4.3-11.1)
[2019-10-23 07:42] LABS: BUN/Creatinine Ratio 15 (6-26); Blood Urea Nitrogen 11 mg/dL (8-23); Calcium 9.2 mg/dL (8.6-10.3); Carbon Dioxide 27 mEq/L (23-29); Chloride 103 mEq/L (98-107); Glucose 121 mg/dL (70-105); Osmolality,Calculated 287 (280-300); Potassium 3.8 mEq/L (3.5-5.1); Sodium 138 mEq/L (136-145); eGFR For African Americans > 60 (> 60); eGFR For Non-African Americans > 60 (> 60)
[2019-10-23] MEDS: Insulin LISPRO 300 UNITS/3 ML VIAL SQ SCH ×4 (07:59→19:59)
[2019-10-23] MEDS: cephALEXin 500 MG CAPSULE PO SCH ×2 (09:05→19:56)
[2019-10-23] MEDS: Famotidine 20 MG TABLET PO SCH (09:05)
[2019-10-24] MEDS: *HR* Enoxaparin 40 MG/0.4 ML SYRINGE SQ SCH (06:04)
[2019-10-24] MEDS: Insulin LISPRO 300 UNITS/3 ML VIAL SQ SCH ×4 (07:32→21:13)
[2019-10-24] MEDS: cephALEXin 500 MG CAPSULE PO SCH ×2 (07:36→21:15)
[2019-10-24] MEDS: Famotidine 20 MG TABLET PO SCH (07:37)
[2019-10-24] MEDS ORDERED: polyethylene glycoL 3350 17 GM POWD.PACK PO SCH (12:15)
[2019-10-24] MEDS: Acetaminophen 325 MG TABLET PO PRN (17:32)
[2019-10-25] MEDS: Acetaminophen 325 MG TABLET PO PRN (02:58)
[2019-10-25] MEDS: *HR* Enoxaparin 40 MG/0.4 ML SYRINGE SQ SCH (05:28)
[2019-10-25] MEDS: Famotidine 20 MG TABLET PO SCH (08:40)
[2019-10-25] MEDS: cephALEXin 500 MG CAPSULE PO SCH (08:40)
[2019-10-25] MEDS: Insulin LISPRO 300 UNITS/3 ML VIAL SQ SCH ×4 (08:43→21:46)
[2019-10-25] MEDS: *HR* OxyCODONE Immed Rel 5 MG TABLET PO PRN (14:28)
[2019-10-26] MEDS: *HR* OxyCODONE Immed Rel 5 MG TABLET PO PRN ×2 (04:11→15:34)
[2019-10-26] MEDS: *HR* Enoxaparin 40 MG/0.4 ML SYRINGE SQ SCH (06:20)
[2019-10-26] MEDS: Famotidine 20 MG TABLET PO SCH (08:04)
[2019-10-26] MEDS: Insulin LISPRO 300 UNITS/3 ML VIAL SQ SCH ×4 (08:05→20:39)
[2019-10-27] MEDS: *HR* Enoxaparin 40 MG/0.4 ML SYRINGE SQ SCH (05:42)
[2019-10-27] MEDS: Famotidine 20 MG TABLET PO SCH (09:08)
[2019-10-27] MEDS: Insulin LISPRO 300 UNITS/3 ML VIAL SQ SCH (09:09)
[2019-10-27 12:28] VITALS: BP 116/70
[2019-10-27] MEDS: *HR* OxyCODONE Immed Rel 5 MG TABLET PO PRN (14:42)
[2019-10-27 16:22] LABS: Adenovirus Not Detected (Not Detect); Bordetella Pertussis Not Detected (Not Detect); Chlamydophila pneumoniae Not Detected (Not Detect); Coronavirus 229E Not Detected (Not Detect); Coronavirus HKU1 Not Detected (Not Detect); Coronavirus NL63 Not Detected (Not Detect); Coronavirus OC43 Not Detected (Not Detect); Human Metapneumovirus Not Detected (Not Detect); Human Rhinovirus/Enterovirus Not Detected (Not Detect); Influenza A Subtype 2009 H1 Not Detected (Not Detect); Influenza B Not Detected (Not Detect); Mycoplasma pneumoniae Not Detected (Not Detect); Parainfluenza Virus 1 Not Detected (Not Detect); Parainfluenza Virus 2 Not Detected (Not Detect); Parainfluenza Virus 3 Not Detected (Not Detect); Parainfluenza Virus 4 Not Detected (Not Detect); Respiratory Syncytial Virus Not Detected (Not Detect); SARS-CoV-2 Not Detected (Not Detect)
== END 2019-10-27 19:10 ==
LOC: EMEROOARM 14:33 → 3NENU 14:33 → SUATTDRO 17:15 → 3NENU 17:51
PROVIDERS: ADMIT Student in an Organized Health Care Education/Training Program; ATTEND Internal Medicine